=== PATIENT | male | born 1960 | race African-American/Black ===

== ENCOUNTER 2018-08-01 14:31 | Inpatient (IN) | payer OTHER ==
[~2018-08-01 14:31] MED LIST: Heparin 10,000 UNITS/ 10 ML VIAL ONE
[2018-08-01 15:10] LABS: Hemoglobin 12.4 g/dL (14.0-18.0); Mean Corpuscular HGB CONC 31.3 g/dL (32.0-36.0); Mean Corpuscular Hemoglobin 30.3 pg (27.0-31.0); Mean Corpuscular Volume 96.9 fL (78.0-98.0); Mean Platelet Volume 8.8 fL (7.4-10.4); Platelet Count 121 thou/uL (130-400); RBC Distribution Width 19.3 % (11.5-14.5); Red Blood Cell (RBC) Count 4.09 mill/uL (4.70-6.10); White Blood Cell (WBC) Count 4.5 thou/uL (4.8-10.8)
[2018-08-01] MEDS ORDERED: Dexamethasone 4 mg/ml Vial ONE (15:15)
[2018-08-01] MEDS ORDERED: Ondansetron PF 4 MG/2 ML Vial ONE (15:15)
--- NOTE | 2018-08-01 15:22 | CT ---
CT Brain WO Con: 08/01/2018 2:59 PM CLINICAL HISTORY: Emergency exam, vomiting, edema, history of recent fall. COMPARISON: None. FINDINGS: Significant patient motion degrades image quality. Hemorrhage: None. Ventricular system: Normal in size and morphology for the patient's age. Cerebral parenchyma: Microvascular ischemic disease. There are bilateral age-indeterminate cerebellar hemispheric, and thalamic lacunar infarctions Midline shift: None. Mass: No mass effect. Calvarium: Normal. Visualized Paranasal sinuses: Clear. IMPRESSION: Multifocal lacunar infarctions and microvascular ischemic disease, age indeterminate. Consider follow -up brain MRI, noncontrast, in order to exclude evidence of acute ischemia.
[2018-08-01 15:28] LABS: INR-International Normal Ratio 1.9; PTT 39.3 SEC (22.9-36.1); Prothrombin Time 21.5 SEC (12.0-14.7)
[2018-08-01 15:31] LABS: ALT (SGPT) 54 U/L (8-55); AST (SGOT) 96 U/L (5-34); Albumin 3.2 g/dL (3.5-5.0); Alkaline Phosphatase 272 U/L (40-150); Anion Gap 18 mmol/L (10-20); BUN (Urea Nitrogen) 71 mg/dL (8.4-25.7); Bilirubin, Total 12.7 mg/dL (0.2-1.2); CK (CPK) 170 U/L (30-200); Calc. Creatinine Clearance 0 mL/min (70-130); Calcium 9.4 mg/dL (7.8-10.44); Carbon Dioxide 21 mmol/L (22-29); Chloride 96 mmol/L (98-107); Estimated GFR-MDRD 18; Globulin 4.8 g/dL (2.4-3.5); Glucose 136 mg/dL (70-105); Potassium 5.3 mmol/L (3.5-5.1); Sodium 130 mmol/L (136-145)
[2018-08-01 15:34] LABS: Anisocytosis SLIGHT = 6-15 cells (100X) (0-5/hpf); Band 3 % (5-11); Lymphocytes 16 % (21-51); MDiff Complete? YES; Monocytes 8 % (0-10); Neutrophil 70 % (42-75); Nucleated RBC 1 % (0); Platelet Morphology Comment Appears Decreased; Polychromasia SLIGHT = 2-3 cells (100X) (0-2/hpf); Target Cells SLIGHT = 2-5 cells (100X) (0-1/hpf)
[2018-08-01] MEDS ORDERED: Metoclopramide HCl 10 MG/2 ML VIAL ONE (15:40)
--- NOTE | 2018-08-01 15:41 | RAD ---
PORTABLE CHEST 1 VIEW: Date: 08/01/18 Time: 1526 hours HISTORY: Vomiting. Leg swelling. FINDINGS/IMPRESSION: Comparison made with exam of 11/22/11. Cardiomegaly and left-sided AICD device are again seen. The lungs are expanded with mid prominence of pulmonary vascularity without lobar consolidation, pneumothoraces, quang pulmonary edema, or large e ffusions. POS: TPC
[2018-08-01 15:51] LABS: CKMB 5.2 ng/mL (0-6.6)
[2018-08-01] MEDS ORDERED: Senokot S 8.6-50 MG TAB PO PRN (20:50)
[2018-08-01] MEDS ORDERED: Bisacodyl 10 MG SUPP PR PRN (20:50)
[2018-08-01] MEDS ORDERED: Dextrose 5% in Water 1,000 ML IV PRN (20:50)
[2018-08-01] MEDS ORDERED: HumaLOG 300 UNITS/3 ML VIAL SC PRN (20:50)
[2018-08-01] MEDS ORDERED: Guaifenesin DM 100-10/5 ML UDCUP PO PRN (20:50)
[2018-08-01] MEDS ORDERED: Dextrose 50% Abboject 50 ML SYRINGE SLOW IVP PRN (20:50)
--- NOTE | 2018-08-01 22:01 | HP ---
REASON FOR ADMISSION: Right hemiparesis, acute kidney injury, possible CKD, metabolic acidosis, mild hyperkalemia, COPD exacerbation, and CHF exacerbation. HISTORY OF PRESENTING ILLNESS: Please note, the patient is a very poor historian and is lethargic as well. Have to repeatedly question him to get responses before he falls asleep. He states he has been feeling worn out and feeling bad from the last week or so. He says he developed right-sided weakness for last one week. He thought he if he sits in the sun, he might feel better. He has been doing that from yesterday. None of this really helped his weakness on the right side. The patient finally made it to the emergency room here. Has shortness of breath and is currently wheezing. He says his heart is weak, and it is likely 10%, and this was checked last month at [facility], which again he is not very sure. He has no complaints of fever. His swelling in the lower extremity has been slowly building up. No complaints of chest pain or palpitation. He says he has usual expectoration of sputum. He quit smoking a month back prior to which was smoking 2 packs a day. PAST MEDICAL AND SURGICAL HISTORY: History of DVT ?, likely atrial fibrillation ; history of CHF with systolic dysfunction and likely EF of around 10%; history of IA 5 years back, the patient is unclear if he had any stents or angioplasty done for the same; dyslipidemia; hypertension; obesity; pacemaker; cholecystectomy; history of nonischemic cardiomyopathy with EF of 15% with AICD placed here; diabetes mellitus type 2; and prior history of SVT. CURRENT MEDICATIONS: The patient knows he takes Lasix, but he does not recall any other medications. Despite giving multiple cues, the patient is unable to answer or recognize any other medications. He goes to [facility] in [place] and we will obtain a complete med list there. I have just received a fax from the pharmacy. The patient is on: 1. Amiodarone 200 mg daily. 2. Atorvastatin 20 mg at bedtime. 3. Coreg 6.25 mg twice daily. 4. Lasix 40 mg at bedtime. 5. Metolazone 2.5 mg daily. 6. K-Dur 10 mEq p.o. daily. 7. Coumadin 2 mg daily. ALLERGIES: NO KNOWN DRUG ALLERGIES. PERSONAL HISTORY: Quit smoking 1 month back prior to which has smoked 2 packs a day. He has done cocaine in the past, last used was more than 10 years ago. Does not abuse alcohol or drugs. He lives alone. Has a girlfriend, who comes and visits him. Has a daughter. FAMILY HISTORY: Father has had history of heart disease, coronary artery disease runs in multiple family members. CODE STATUS: Full. POWER OF JAWBONE PULLER: Daughter, Ms. Margo Khanna. PHYSICAL EXAMINATION: GENERAL: The patient is a 57-year-old male, who is currently very lethargic. VITAL SIGNS: Blood pressure 116/80, pulse 86 per minute, respiratory rate 20 per minute, temperature 97.7 degrees Fahrenheit, and saturating 98% on room air. NECK: There is elevated JVD. HEENT: Eyes; extraocular muscles intact. Pupils reacting to light. Oral cavity, mucous membranes are dry. No exudates or congestion. CARDIOVASCULAR: S1 and S2 heard. Regular rhythm. RESPIRATORY: Air entry 1+ bilateral. Scattered rales plus bilateral wheezes plus bilateral. ABDOMEN: Soft. Bowel sounds heard. No tenderness, rigidity, or guarding. EXTREMITIES: There is 2+ peripheral edema. No calf tenderness. VASCULAR: Peripheral pulses 1+ bilateral. No ischemic ulcerations or gangrene. CENTRAL NERVOUS SYSTEM: Cranial nerves are grossly intact. Please note, the patient is very lethargic and somnolent at present. Strength is 3/5 in right upper and right lower extremities. Has normal strength in left upper and lower extremities. He is a right-handed person. Babinski is equivocal. The patient has severe edema in both lower extremities. Reflexes to the extent possible are normal. Gait and cerebellar signs cannot be tested due to the patient's somnolence and lethargic at present. PSYCHIATRIC: Cannot be obtained as the patient is very somnolent at present. No obvious hallucinations or delusions at present. CLINICAL IMPRESSION AND PLAN: The patient will be admitted to stroke unit with right hemiparesis, acute on chronic obstructive pulmonary disease exacerbation, acute on chronic congestive heart failure exacerbation with systolic dysfunction , acute kidney injury on top of likely chronic kidney disease, metabolic acidosis, hyperkalemia. It is unclear if the patient has history of deep venous thrombosis, but he is on Coumadin. We will place him on aspirin 81 mg daily in addition to Coumadin that he is on. Continue Cordarone, atorvastatin at 40 mg daily, small dose of Coreg 3.125 mg twice daily, DuoNebs, and Solu-Medrol 20 mg IV q.8 hourly for the chronic obstructive pulmonary disease exacerbation. He will be on Humalog moderate dose scale for diabetes. I have consulted Dr. Parker for acute kidney injury on top of chronic kidney disease with massive edema in the lower extremities. We will consult Dr. Spring for Cardiology, Dr. Williamson for Neurology, and Dr. Villanueva for Pulmonology. An echo with 2D Doppler for LV function and to rule out thrombus will be obtained. The lipid profile in the morning, TSH in the morning. We will also obtain a urine drug screen and urinalysis with microscopy in view of acute kidney injury. The patient's overall prognosis is guarded with multiple organ disease. We will obtain ultrasound venous Doppler of lower extremities and also obtain Palliative Care consultation. I have asked him about code status and he wants to be a full code. He is clearly aware of multiple medical issues that he is having at present and still wants to be full code. His daughter, Ms. Margo Khanna, is the power of civil rights attorney for him. Job ID: [id number] MTDD
[2018-08-01] MEDS: Atorvastatin Calcium 40 MG TAB PO SCH (22:19)
[2018-08-01] MEDS: methylPREDNISolone Sod Succ 40 MG VIAL IVP SCH (22:19)
[2018-08-01] MEDS: Carvedilol 3.125 MG TAB PO SCH (22:19)
[2018-08-02 03:42] LABS: Bilirubin Moderate (Negative); Blood, Urine Negative (Negative); Clarity CLOUDY (Clear); Glucose, Urine (Dipstick) Negative (Negative); Leukocyte Trace (Negative); Nitrite Negative (Negative); Protein, Urine (Dipstick) Negative (Neg-Trace); Specific Gravity, Urine 1.012 (1.002-1.036)
[2018-08-02 03:45] LABS: Bacteria/HPF None Seen HPF (None Seen); Squamous Epithelial 0-3 HPF (0-3)
[2018-08-02 04:05] LABS: Amphetamine Not Detected (NotDetected); Barbiturates Screen Not Detected (NotDetected); Benzodiazepine Screen Not Detected (NotDetected); Cocaine Metabolite Screen Not Detected (NotDetected); Medtox Control Line Valid? VALID (VALID); Medtox Reader # READER 4; Methadone Not Detected (NotDetected); Methamphetamine Not Detected (NotDetected); Opiate Screen Not Detected (NotDetected); Oxycodone Screen Not Detected (NotDetected); Phencyclidine (PCP) Not Detected (NotDetected); THC/Cannabinoid Screen Not Detected (NotDetected); Tricyclic Screen Not Detected (NotDetected)
[2018-08-02 04:19] LABS: Creatinine, Urine 115.07 mg/dL (63-166); Protein, Urine Random Quant Less than 10 mg/dL (1-14)
[2018-08-02 04:56] LABS: INR-International Normal Ratio 1.9; Prothrombin Time 21.8 SEC (12.0-14.7)
[2018-08-02] MEDS: methylPREDNISolone Sod Succ 40 MG VIAL IVP SCH ×3 (05:00→21:38)
[2018-08-02 05:06] LABS: Pathc Cast-AUWi Flag 2.72 (0-2.49); Renal Epithelial None Seen HPF (0-3); Transitional Epithelial NONE SEEN HPF (0-3)
[2018-08-02 05:13] LABS: Anion Gap 17 mmol/L (10-20); BUN (Urea Nitrogen) 70 mg/dL (8.4-25.7); Calc. Creatinine Clearance 35 mL/min (70-130); Calcium 9.4 mg/dL (7.8-10.44); Carbon Dioxide 20 mmol/L (22-29); Cardiac Risk 8.3 (Less than 4.5); Chloride 97 mmol/L (98-107); Cholesterol 124 mg/dl (< 200 Desired); Estimated GFR-MDRD 19; Glucose 113 mg/dL (70-105); HDL Cholesterol 15 mg/dL (>60 Neg Risk); LDL Cholesterol, Calculated 94 mg/dL; Magnesium 1.9 mg/dL (1.6-2.6); Potassium 5.2 mmol/L (3.5-5.1); Sodium 129 mmol/L (136-145); Triglycerides 77 mg/dL (Less than 150)
[2018-08-02 06:01] LABS: Anisocytosis SLIGHT = 6-15 cells (100X) (0-5/hpf); Band 2 % (5-11); Hemoglobin 12.2 g/dL (14.0-18.0); Lymphocytes 11 % (21-51); MDiff Complete? YES; Mean Corpuscular HGB CONC 30.4 g/dL (32.0-36.0); Mean Corpuscular Hemoglobin 29.3 pg (27.0-31.0); Mean Corpuscular Volume 96.4 fL (78.0-98.0); Neutrophil 87 % (42-75); Nucleated RBC 2 % (0); Platelet Count 117 thou/uL (130-400); Platelet Morphology Comment Appears Decreased; RBC Distribution Width 19.6 % (11.5-14.5); Red Blood Cell (RBC) Count 4.17 mill/uL (4.70-6.10); White Blood Cell (WBC) Count 3.2 thou/uL (4.8-10.8)
[2018-08-02] MEDS: HumaLOG 300 UNITS/3 ML VIAL SC PRN (06:10)
[2018-08-02] MEDS: Aspirin Chewable 81 MG TAB PO SCH (09:12)
[2018-08-02] MEDS: Carvedilol 3.125 MG TAB PO SCH ×2 (09:12→21:38)
[2018-08-02] MEDS: Amiodarone 200 MG TAB PO SCH (09:12)
--- NOTE | 2018-08-02 10:58 | ULT ---
EXAM: Bilateral lower extremity venous duplex: Deep veins evaluated with color Doppler, spectral analysis, and compression. INDICATIONS: Bilateral lower extremity edema. FINDINGS: Deep veins interrogated include common femoral vein, femoral vein, popliteal vein, and post erior tibial vein. These veins show normal compression and blood flow. No evidence of DVT. IMPRESSION: Negative Bilateral venous duplex exam. Soft tissue edema.
--- NOTE | 2018-08-02 11:22 | PDOC.PN ---
- Subjective Encounter Start Date: 08/02/18 Encounter Start Time: 11:20 Subjective: Admitted due to decreased responsiveness associated with right leg weakness -: Also reported worsening bilateral leg swelling and N/V -: Feeling better. - Objective Resuscitation Status - Order Detail: 08/01/18 20:34 Resuscitation Status Routine Resuscitation Status: FULL: Full Resuscitation Discussed with: POA: daughter Ms.Rachel Leal Vital Signs & Weight: Vital Signs (12 hours) Temp Pulse Pulse Resp BP BP Pulse Ox 08/02/18 10:49 60 16 08/02/18 08:41 60 109/75 08/02/18 07:30 97.8 F 60 20 101/73 100 08/02/18 04:00 97.4 F L 71 16 97/69 91 L 08/02/18 00:50 96 08/02/18 00:46 64 12 96 08/02/18 00:00 97.5 F L 66 16 101/71 95 Weight Weight 260 lb 11.2 oz I&O: 08/01/18 08/02/18 08/03/18 06:59 06:59 06:59 Intake Total 300 Balance 300 Result Diagrams: 08/02/18 04:38 08/02/18 04:37 Additional Labs: Accuchecks 08/02/18 08/02/18 08/01/18 11:00 04:06 21:02 POC Glucose 146 H 169 H 114 H 08/01/18 14:42 POC Glucose 133 H Phys Exam - Physical Examination Chronically ill looking. afebrile HEENT: moist MMs JVD noted Respiratory: no rhonchi Fair air entry with transmitted sound. Cardiovascular: RRR Gastrointestinal: soft, non-tender, no distention, positive bowel sounds Musculoskeletal: pulses present Marked bilateral lower extremity edema Awake and conversational, Power 5/5 upper limbs with no drift. moving lower limbs with decreased power relative to upper limbs. Psychiatric: A&O x 3 Deviation from normal: Hyperpigmentation of bothe distal legs noted. anterior leg dressing noted Dx/Plan (1) Acute on chronic combined systolic and diastolic congestive heart failure Code(s): I50.43 - ACUTE ON CHRONIC COMBINED SYSTOLIC AND DIASTOLIC HRT FAIL Status: Acute (2) Cardiomyopathy Code(s): I42.9 - CARDIOMYOPATHY, UNSPECIFIED Status: Acute Qualifiers: Cardiomyopathy type: unspecified Qualified Code(s): I42.9 - Cardiomyopathy , unspecified (3) CKD (chronic kidney disease) Code(s): N18.9 - CHRONIC KIDNEY DISEASE, UNSPECIFIED Status: Acute Comment: SRAVAN componenet cannot be ruled out. (4) Hyperkalemia Code(s): E87.5 - HYPERKALEMIA Status: Acute Comment: Mild. (5) Metabolic acidosis Code(s): E87.2 - ACIDOSIS Status: Acute (6) Acute metabolic encephalopathy Code(s): G93.41 - METABOLIC ENCEPHALOPATHY Status: Acute Comment: Most likely due to CKD +/- SRAVAN (7) Cerebellar infarction Code(s): I63.9 - CEREBRAL INFARCTION, UNSPECIFIED Status: Acute (8) COPD exacerbation Code(s): J44.1 - CHRONIC OBSTRUCTIVE PULMONARY DISEASE W (ACUTE) EXACERBATION Status: Acute (9) Bilateral leg edema Code(s): R60.0 - LOCALIZED EDEMA Status: Acute (10) Physical deconditioning Code(s): R53.81 - OTHER MALAISE Status: Acute (11) Diabetes mellitus Code(s): E11.9 - TYPE 2 DIABETES MELLITUS WITHOUT COMPLICATIONS Status: Acute (12) Chronic anticoagulation Code(s): Z79.01 - CARE HOME (CURRENT) USE OF ANTICOAGULANTS Status: Acute (13) History of DVT of lower extremity Code(s): Z86.718 - PERSONAL HISTORY OF OTHER VENOUS THROMBOSIS AND EMBOLISM Status: Acute - Plan Start low dose IV lasix. Will increase as BP permits. -: Awaiting Neurology and Nephrology input. -: Awaiting MRI and Echo -: Continue Bronchodilators and steroid. -: Continue insulin therapy, PT/OT eval and treat * .
[2018-08-02] MEDS ORDERED: Furosemide 20 MG/2 ML VIAL SLOW IVP SCH (11:45)
--- NOTE | 2018-08-02 13:28 | PRG ---
DATE OF SERVICE: 08/02/2018 SUBJECTIVE: Patient was seen and examined at bedside and overnight events noted. Patient denies any shortness of breath or chest pain or palpitation. No history of nausea or vomiting or diarrhea or fever or chills or cramps. OBJECTIVE: GENERAL: This is an ill looking male, in no apparent distress. VITAL SIGNS: Temperature 97.5, heart rate 67, respiratory rate 16, and blood pressure 111/71. HEENT: Atraumatic, normocephalic. Oral mucosa is moist. NECK: Supple. CARDIOVASCULAR: S1, S2 heard. Rate and rhythm regular. RESPIRATORY: Clear to auscultation. GASTROINTESTINAL: Abdomen is soft. MUSCULOSKELETAL: No tenderness. No edema. DERMATOLOGIC: No skin rash. NEUROLOGIC: Alert and awake and oriented X3. No focal neurologic deficits. Moving all the extremities. PSYCHIATRIC: Mood and affect normal. LABORATORY DATA: Hemoglobin is 12.2, potassium is 5.2, BUN is 70, and creatinine is 4.7. ASSESSMENT AND PLAN: 1. Acute kidney injury on chronic kidney disease, stage 4. Agree with low dose of Lasix. 2. Hyperkalemia. 3. Hyponatremia, limit fluid intake. 4. Metabolic acidosis. 5. Cardiorenal syndrome. 6. Anemia. 7. Hypertension, stable. 8. Agree with low-dose Lasix and monitor blood pressure closely. Avoid nephrotoxins and long-term prognosis guarded. We will review records from [facility]. Job ID: [id number]
--- NOTE | 2018-08-02 14:28 | CON ---
DATE OF CONSULTATION: HISTORY OF PRESENT ILLNESS: Guilherme Hernadez is a 57-year-old gentleman from [place], who was admitted to the hospital yesterday with multiple problems, vomiting, lower extremity swelling, confusion, falling down, and weakness. He has no history of cardiomyopathy. In fact, he had an ICD placed in 7-8 years ago and tells me he was seeing a convention planner at [place]. Apparently, he has no primary care physician, though this morning, he is clearly lethargic and sleepy. He said he has not slept. He denies any coughing or wheezing. He is smoking a pack a day for most of his life. He denies any previous history of TB or asthma. PAST MEDICAL HISTORY: 1. Congestive heart failure. 2. Myocardial infarction. 3. Diabetes. 4. High cholesterol. 5. Cardiomyopathy. 6. COPD. 7. Asthma. PAST SURGERIES: 1. Pacemaker. 2. Cholecystectomy. HOME MEDICATIONS: Includes; 1. Coumadin 2. 2. Potassium. 3. Zaroxolyn 2.5. 4. Lasix 40. 5. Coreg 6.25 twice a day. 6. Lipitor 20. 7. Amiodarone 200 a day. He is now started on steroids and neb treatment. ALLERGIES: NONE. SOCIAL HISTORY: As noted, no alcohol abuse. Presently disabled. REVIEW OF SYSTEMS: Ten point negative. PHYSICAL EXAMINATION: VITAL SIGNS: Saturations are 94% on room air, pulse 60, temperature 97, respiratory rate 16, blood pressure 110/71. CHEST: Diffuse wheezing. CARDIAC: Normal S1 and S2. No gallops. ABDOMEN: Soft. LABORATORY DATA: Creatinine is 4, BUN is 70, and glucose 145. Drug screen was negative. White count 3000, hemoglobin and hematocrit 12 and 40, platelet count 117. Chest x-ray shows a cardiomegaly and AICD in place. IMPRESSION: 1. Ischemic cardiomyopathy status post automatic implantable cardioverter-defibrillator. 2. Diabetes. 3. Renal failure. 4. Hypertension. 5. Tobacco abuse. 6. Chronic obstructive pulmonary disease. 7. Asthma. PLAN: Pulmonary conklin, he is on adequate medication, obviously to refrain from smoking. Await input from Cardiology and appropriate physicians. We will follow. TIME SPENT: Consultation note, 70 minutes, 50% in direct patient care. Job ID: [id number]
--- NOTE | 2018-08-02 15:14 | CON ---
DATE OF CONSULTATION: 08/02/2018 CONSULTING PHYSICIAN: Hospitalist Service. IMPRESSION: 1. Probable lacunar stroke, resulting in some improving right-sided weakness, nausea, and dizziness, consistent with the small left thalamic infarct, present on CT. 2. Subtherapeutic Coumadin. 3. Congestive heart failure. PLAN: 1. Adjust Coumadin to an INR between 2-3. 2. Echocardiogram. 3. Carotid ultrasound. HISTORY OF PRESENT ILLNESS: Mr. Hernadez is a 57-year-old man, who lives in [place]. He has a history of coronary artery disease with secondary congestive heart failure. He reportedly is followed at [facility] to monitor his Coumadin level. He had not been feeling well for the last several days. He had some nausea and dizziness as well as a headache. He also noted some right-sided weakness. Beside it, if he laid in the sun, he would feel better. It became progressively worsen, more obtunded. He was brought into the hospital for evaluation. He was found to be in renal failure. His CAT scan showed a subacute appearing area of infarct in the left thalamus. Otherwise, he has improved overnight and has become much more lucid. He reports that the right-sided weakness has improved significantly. PAST HISTORY: As listed above. ALLERGIES: NONE. SOCIAL HISTORY: Unremarkable. FAMILY HISTORY: Noncontributory. MEDICATIONS: Medication list was reviewed. REVIEW OF SYSTEMS: Ten-system review of systems is otherwise negative. PHYSICAL EXAMINATION: VITAL SIGNS: Blood pressure 109/75, pulse 60, respirations 20, temperature 97.8. HEENT: Pupils equal and reactive. Conjunctivae clear. Oropharynx clear. NECK: Supple. EXTREMITIES: Severe edema in both lower extremities. NEUROLOGIC: He is alert and appropriate. His speech is fluent and clear. Cranial nerve exam shows a subtle right facial droop. Motor exam showed good strength bilaterally. There was very mild dysmetria on the right side. Sensation was intact. Gait was not tested. No abnormal movements were seen. LABORATORY STUDIES: White blood cell count 4.5 and hemoglobin 12.4. INR of 1.9. BUN of 70 and creatinine of 4. Cholesterol ratio of 8.3. Toxicology screen was negative. SUMMARY: A middle-aged man with mild weakness and dysmetria on the right, consistent with a small infarct in the left thalamus. He is subtherapeutic on his Coumadin level. Reportedly, his ejection fraction is around 10%. Therefore, anticoagulation would appear to be appropriate. His level of consciousness has improved significantly since admission. His lipid panel shows a very poor ratio, will need to be addressed with a statin. We will review his vascular studies when they are available. Job ID: [id number]
[2018-08-02] MEDS: Warfarin Sodium 2 MG TAB PO SCH (16:58)
[2018-08-02] MEDS: Mometasone/Formoterol 120 PUFF INHALER INH SCH (19:25)
[2018-08-02] MEDS ORDERED: Ondansetron ODT 4 MG TAB PO PRN (19:28)
[2018-08-02] MEDS: Ondansetron PF 4 MG/2 ML Vial SLOW IVP PRN (19:42)
[2018-08-02] MEDS: Atorvastatin Calcium 40 MG TAB PO SCH (21:38)
[2018-08-02] MEDS: Melatonin 3 MG TAB PO PRN (23:58)
[2018-08-03] MEDS: Acetaminophen 325 MG TAB PO PRN ×2 (00:01→12:54)
[2018-08-03] MEDS: methylPREDNISolone Sod Succ 40 MG VIAL IVP SCH (05:20)
[2018-08-03] MEDS: Mometasone/Formoterol 120 PUFF INHALER INH SCH ×2 (07:10→19:15)
[2018-08-03] MEDS: Aspirin Chewable 81 MG TAB PO SCH (08:32)
[2018-08-03] MEDS: Carvedilol 3.125 MG TAB PO SCH ×2 (08:32→21:39)
[2018-08-03] MEDS: Amiodarone 200 MG TAB PO SCH (08:32)
[2018-08-03 08:39] LABS: INR-International Normal Ratio 2.1; Prothrombin Time 23.6 SEC (12.0-14.7)
[2018-08-03 08:42] LABS: Albumin 3.3 g/dL (3.5-5.0); Anion Gap 16 mmol/L (10-20); BUN (Urea Nitrogen) 74 mg/dL (8.4-25.7); BUN/Creatinine Ratio 18.78; Calc. Creatinine Clearance 36 mL/min (70-130); Calcium 9.8 mg/dL (7.8-10.44); Carbon Dioxide 24 mmol/L (22-29); Chloride 95 mmol/L (98-107); Estimated GFR-MDRD 19; Glucose 118 mg/dL (70-105); Phosphorus 3.9 mg/dL (2.3-4.7); Potassium 5.2 mmol/L (3.5-5.1); Sodium 130 mmol/L (136-145)
[2018-08-03] MEDS ORDERED: Furosemide 40 MG/4 ML VIAL SLOW IVP SCH (08:45)
--- NOTE | 2018-08-03 10:46 | PDOC.PN ---
- Subjective Encounter Start Date: 08/03/18 Encounter Start Time: 10:44 Subjective: Feeling better. No new problwm -: Still with marked bilateral leg edema - Objective Resuscitation Status - Order Detail: 08/01/18 20:34 Resuscitation Status Routine Resuscitation Status: FULL: Full Resuscitation Discussed with: POA: daughter Ms.Rachel Leal Vital Signs & Weight: Vital Signs (12 hours) Temp Pulse Resp BP BP Pulse Ox 08/03/18 07:11 97.4 F L 60 20 109/79 100 08/03/18 07:10 61 16 08/03/18 07:02 61 16 08/03/18 03:20 97.5 F L 60 16 95/61 100 08/03/18 01:15 64 12 08/02/18 23:22 97.3 F L 84 16 118/78 96 Weight Admit Weight 260 lb 11.2 oz Weight 264 lb 14.4 oz I&O: 08/02/18 08/03/18 08/04/18 06:59 06:59 06:59 Intake Total 1100 300 Output Total 800 250 Balance 300 50 Result Diagrams: 08/02/18 04:38 08/03/18 08:06 Additional Labs: Accuchecks 08/02/18 08/02/18 08/02/18 20:49 16:36 11:00 POC Glucose 255 H 149 H 146 H Phys Exam - Physical Examination chronically ill looking. HEENT: moist MMs JVD noted fair air entry bilaterally with no obvious crackles or rhonchi Cardiovascular: RRR systolic murmur noted Gastrointestinal: soft, non-tender, no distention, positive bowel sounds Marked edema of both legs. awake and conversational. moving all limbs. Psychiatric: A&O x 3 Dx/Plan (1) Acute on chronic combined systolic and diastolic congestive heart failure Code(s): I50.43 - ACUTE ON CHRONIC COMBINED SYSTOLIC AND DIASTOLIC HRT FAIL Status: Acute (2) Cardiomyopathy Code(s): I42.9 - CARDIOMYOPATHY, UNSPECIFIED Status: Acute Qualifiers: Cardiomyopathy type: unspecified Qualified Code(s): I42.9 - Cardiomyopathy , unspecified (3) CKD (chronic kidney disease) Code(s): N18.9 - CHRONIC KIDNEY DISEASE, UNSPECIFIED Status: Acute Comment: SRAVAN componenet cannot be ruled out. (4) Hyperkalemia Code(s): E87.5 - HYPERKALEMIA Status: Acute Comment: Mild. (5) Metabolic acidosis Code(s): E87.2 - ACIDOSIS Status: Acute (6) Acute metabolic encephalopathy Code(s): G93.41 - METABOLIC ENCEPHALOPATHY Status: Acute Comment: Most likely due to CKD +/- SRAVAN (7) Cerebellar infarction Code(s): I63.9 - CEREBRAL INFARCTION, UNSPECIFIED Status: Acute (8) COPD exacerbation Code(s): J44.1 - CHRONIC OBSTRUCTIVE PULMONARY DISEASE W (ACUTE) EXACERBATION Status: Acute (9) Bilateral leg edema Code(s): R60.0 - LOCALIZED EDEMA Status: Acute (10) Physical deconditioning Code(s): R53.81 - OTHER MALAISE Status: Acute (11) Diabetes mellitus Code(s): E11.9 - TYPE 2 DIABETES MELLITUS WITHOUT COMPLICATIONS Status: Acute (12) Chronic anticoagulation Code(s): Z79.01 - [facility] (CURRENT) USE OF ANTICOAGULANTS Status: Acute (13) History of DVT of lower extremity Code(s): Z86.718 - PERSONAL HISTORY OF OTHER VENOUS THROMBOSIS AND EMBOLISM Status: Acute (14) Severe mitral regurgitation Code(s): I34.0 - NONRHEUMATIC MITRAL (VALVE) INSUFFICIENCY Status: Acute (15) Severe tricuspid regurgitation Code(s): I07.1 - RHEUMATIC TRICUSPID INSUFFICIENCY Status: Acute (16) Moderate aortic regurgitation Code(s): I35.1 - NONRHEUMATIC AORTIC (VALVE) INSUFFICIENCY Status: Acute - Plan Continue low dose diuresis as BP permits. -: Elevate lower extremities. -: Appreciate Nephrology input. -: Awaiting MRI brain. -: Continue PT/OT * .
--- NOTE | 2018-08-03 11:46 | PRG ---
DATE OF SERVICE: 08/03/2018 SUBJECTIVE: Guilherme Hernadez is doing well this morning. OBJECTIVE: VITAL SIGNS: Temperature 97, pulse 60, respiratory rate 20, saturations 100% on 2 L, and blood pressure 109/79. GENERAL: Denies any pain or discomfort. CHEST: No wheezing or crackles. CARDIAC: Normal S1 and S2. No gallops. ABDOMEN: No masses. LABORATORY DATA: Creatinine is 3.9. INR is 2.1. IMPRESSION: Chronic obstructive pulmonary disease, cardiomyopathy, diabetes, hypertension, tobacco abuse, weakness suggestive of thalamic infarct. PLAN: Continue PT, supportive care. Switch over to oral prednisone. Job ID: [id number]
--- NOTE | 2018-08-03 12:47 | PRG ---
DATE OF SERVICE: 08/03/2018 SUBJECTIVE: Patient was seen and examined at bedside and overnight events noted. Patient denies any shortness of breath or chest pain or palpitation. No history of nausea or vomiting or diarrhea or fever or chills or cramps. OBJECTIVE: GENERAL: This is a well-built male, in no apparent distress. VITAL SIGNS: Temperature 97.5. Heart rate 60. Respiratory rate 16. Blood pressure 103/77. HEENT: Atraumatic, normocephalic. Oral mucosa is moist. NECK: Supple. CARDIOVASCULAR: S1, S2 heard. Rate and rhythm regular. RESPIRATORY: Clear to auscultation. GASTROINTESTINAL: Abdomen is soft. MUSCULOSKELETAL: No tenderness. No edema. DERMATOLOGIC: No skin rash. NEUROLOGIC: Alert and awake and oriented x3. No focal neurologic deficits. Moving all the extremities. PSYCHIATRIC: Mood and affect normal. LABORATORY DATA: Potassium is 5.2, BUN is 74, creatinine is 3.9 from 4.1 on admission. IMAGING DATA: Echocardiogram done yesterday on 08/02/2018 showed EF of 10% to 15% with severely dilated left atrium and markedly enlarged right atrium with severe tricuspid regurgitation and severe mitral valve regurgitation. ASSESSMENT AND PLAN: 1. Acute kidney injury on chronic kidney, stage 4 with stable labs, on low dose of Lasix. 2. Cardiorenal syndrome. 3. Severe cardiomyopathy with multiple valvular problem secondary to severe mitral regurgitation and severe tricuspid regurgitation. Follow with Cardiology. 4. Hyponatremia. 5. Metabolic acidosis, most likely from cardiac cause. 6. Anemia. We will monitor. 7. Hypertension, stable. 8. Hyperkalemia. Limit potassium intake and continue Lasix. We will follow. Continue Lasix as tolerated. We will closely monitor renal function. Job ID: [id number]
[2018-08-03] MEDS ORDERED: Furosemide 20 MG/2 ML VIAL SLOW IVP SCH (14:00)
[2018-08-03] MEDS ORDERED: DOBUTamine 500 mg/250 ml 250 ML IVPB SCH (15:00)
[2018-08-03] MEDS: Ondansetron PF 4 MG/2 ML Vial SLOW IVP PRN (15:01)
--- NOTE | 2018-08-03 16:54 | CON ---
DATE OF CONSULTATION: HISTORY OF PRESENT ILLNESS: The patient is an unfortunate 57-year-old gentleman with severe cardiomyopathy, who presented with right-sided weakness. The patient has a long history of an apparent nonischemic cardiomyopathy. 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 The patient has been admitted recently to [facility] with congestive heart failure. He was in usual state of health and presented with right-sided weakness. The patient denies having any chest discomfort. PAST MEDICAL HISTORY: Significant for: 1. Cardiomyopathy. 2. Hypertension. 3. Chronic renal failure. 4. Dyslipidemia. 5. History of AICD placement. 6. Diabetes. PAST SURGICAL HISTORY: He has had a cholecystectomy. MEDICATIONS: See nursing list. ALLERGIES: NONE. SOCIAL HISTORY: Former smoker. FAMILY HISTORY: Strong family history of heart disease. REVIEW OF SYSTEMS: Ten-point systems; noticeable for headaches, increasing weakness, and lower extremity swelling. PHYSICAL EXAMINATION: GENERAL: This is an edematous gentleman, who is in mild distress. VITAL SIGNS: Blood pressure 103/77. NECK: Full with jugular venous distention to the jaw. LUNGS: Have crackles in both lung bases. HEART: Regular rate and rhythm. Normal S1 and S2 with a 2/6 holosystolic murmur. ABDOMEN: Distended. EXTREMITIES: Showed severe edema. VASCULAR: Radial pulses are 2+. LABORATORY RESULTS: His sodium is 130, potassium 5.2, chloride 95, bicarb 24, BUN 74, creatinine 3.94. His white blood cell count is 3.2, hemoglobin 12.2, hematocrit 40.2, platelets 117. INR is 2.1. His EKG revealed sinus rhythm with first-degree AV block. IMPRESSION: 1. Cerebrovascular accident. 2. Cardiomyopathy. 3. History of automatic implantable cardioverter-defibrillator placement. 4. Renal failure. 5. Severe mitral regurgitation. 6. Dyslipidemia. 7. Diabetes mellitus. This is an unfortunate gentleman with a nonischemic cardiomyopathy, presents with a cerebrovascular accident. His Coumadin level was slightly subtherapeutic. Neurology recommended continuing on aspirin and Coumadin. The patient will be diuresed with IV Lasix. We will follow this patient with you through his hospitalization. His prognosis is extremely poor. Please call my office. Job ID: [id number]
[2018-08-03] MEDS: Warfarin Sodium 2 MG TAB PO SCH (17:36)
[2018-08-03] MEDS: Melatonin 3 MG TAB PO PRN (21:39)
[2018-08-04] MEDS ORDERED: Furosemide 40 MG/4 ML VIAL SLOW IVP SCH ×2 (06:00→14:00)
[2018-08-04] MEDS: HumaLOG 300 UNITS/3 ML VIAL SC PRN (06:27)
[2018-08-04 06:30] LABS: INR-International Normal Ratio 2.6; Prothrombin Time 27.6 SEC (12.0-14.7)
[2018-08-04 06:41] LABS: Albumin 2.8 g/dL (3.5-5.0); Anion Gap 17 mmol/L (10-20); BUN (Urea Nitrogen) 79 mg/dL (8.4-25.7); BUN/Creatinine Ratio 20.79; Calc. Creatinine Clearance 37 mL/min (70-130); Calcium 9.5 mg/dL (7.8-10.44); Carbon Dioxide 21 mmol/L (22-29); Chloride 97 mmol/L (98-107); Estimated GFR-MDRD 20; Glucose 136 mg/dL (70-105); Potassium 5.5 mmol/L (3.5-5.1); Sodium 129 mmol/L (136-145)
[2018-08-04 06:43] LABS: ALT (SGPT) 48 U/L (8-55); AST (SGOT) 68 U/L (5-34); Albumin 2.8 g/dL (3.5-5.0); Alkaline Phosphatase 261 U/L (40-150); Anion Gap 17 mmol/L (10-20); BUN (Urea Nitrogen) 80 mg/dL (8.4-25.7); Bilirubin, Total 9.5 mg/dL (0.2-1.2); Calc. Creatinine Clearance 37 mL/min (70-130); Calcium 9.8 mg/dL (7.8-10.44); Carbon Dioxide 22 mmol/L (22-29); Chloride 98 mmol/L (98-107); Estimated GFR-MDRD 20; Glucose 138 mg/dL (70-105); Potassium 5.5 mmol/L (3.5-5.1); Protein, Total 7.4 g/dL (6.0-8.3); Sodium 131 mmol/L (136-145)
[2018-08-04] MEDS: Mometasone/Formoterol 120 PUFF INHALER INH SCH ×2 (07:36→18:19)
[2018-08-04] MEDS: Amiodarone 200 MG TAB PO SCH (08:49)
[2018-08-04] MEDS: predniSONE 20 MG TAB PO SCH (08:49)
[2018-08-04] MEDS: Aspirin Chewable 81 MG TAB PO SCH (08:50)
[2018-08-04] MEDS: Carvedilol 3.125 MG TAB PO SCH (08:51)
--- NOTE | 2018-08-04 09:23 | PRG ---
DATE OF SERVICE: 08/04/2018 SUBJECTIVE: This morning, he is weak. He was started on Dobutrex. EF is 15%. OBJECTIVE: VITAL SIGNS: Temperature 97, pulse 60, respiratory rate 14, saturations 100%, blood pressure 111/77. GENERAL: He had difficulty breathing. CHEST: No wheezing, crackles. CARDIAC: Normal S1, S2. . IMPRESSION: 1. Chronic obstructive pulmonary disease, stable. 2. Abnormal liver function. 3. Renal failure. 4. Cardiomyopathy. 5. Electrolyte imbalance. PLAN: Continue present treatment. PT, supportive care. Prognosis is guarded. Job ID: [id number]
[2018-08-04] MEDS ORDERED: Furosemide 100 MG/10 ML VIAL SLOW IVP SCH (10:30)
--- NOTE | 2018-08-04 11:16 | CON ---
DATE OF CONSULTATION: 08/01/2018 CONSULTING PHYSICIAN: Dilia Woody MD REASON FOR CONSULTATION: Acute kidney injury. REASON FOR ADMISSION: Vomiting, leg swelling. HISTORY OF PRESENT ILLNESS: This is a 57-year-old male with history of CHF, CKD, diabetes, hyperlipidemia, obesity, COPD, came to the hospital with above complaints. The patient is a poor historian, most of the history is obtained from review of records. The patient is from [place] and sees [facility] doctor. No chest pain or palpitation reported. No fever or chills. No skin rash. Complains of leg swelling, orthopnea, shortness of breath on exertion, which is chronic for him. PAST MEDICAL HISTORY: Positive for CHF, CKD, coronary artery disease, diabetes, hypertension, hyperlipidemia, obesity, COPD, asthma. PAST SURGICAL HISTORY: Pacemaker placement, cholecystectomy. HOME MEDICATIONS: Include; 1. Coumadin. 2. K-Dur. 3. Zaroxolyn. 4. Lasix. 5. Coreg. 6. Lipitor. 7. Amiodarone. ALLERGIES: NO KNOWN DRUG ALLERGIES. SOCIAL HISTORY: No smoking, alcohol, or illicit drug abuse. FAMILY HISTORY: No history of kidney disease. REVIEW OF SYSTEMS: CONSTITUTIONAL: Negative for weight loss or gain, ability to conduct usual activities. SKIN: Negative for rash, itching. EYES: Negative for double vision, pain. ENT/MOUTH: Negative for nose bleeding, neck stiffness, pain, tenderness. CARDIOVASCULAR: Negative for palpitations, dyspnea on exertion, orthopnea. RESPIRATORY: Negative for shortness of breath, wheezing, cough, hemoptysis, fever or night sweats. GASTROINTESTINAL: Negative for poor appetite, abdominal pain, heartburn, nausea, vomiting, constipation, or diarrhea. GENITOURINARY: Negative for urgency, frequency, dysuria, nocturia. MUSCULOSKELETAL: Negative for pain, swelling. NEUROLOGIC/PSYCHIATRIC: Negative for anxiety, depression. ALLERGY/IMMUNOLOGIC: Negative for skin rash, bleeding tendency. Rest are negative review of systems. PHYSICAL EXAMINATION: GENERAL: This is a well-built, in mild distress. VITAL SIGNS: Temperature 97.1, pulse 86, respiratory rate 20, blood pressure 116/79. HEENT: Atraumatic, normocephalic. Oral mucosa is moist. NECK: JVD is present. CV: S1, S2 heard. RESPIRATORY: Crackles present. GI: Abdomen is obese. MUSCULOSKELETAL: 1+ edema. DERMATOLOGIC: No skin rash. NEUROLOGIC: Awake with right-sided weakness. LABORATORY DATA: Hemoglobin is 12.4, potassium 5.3, BUN is 71, creatinine is 4.1. ASSESSMENT AND PLAN: 1. Acute kidney injury on chronic kidney disease, stage 3, most likely from cardiorenal syndrome. We will monitor. 2. Hyponatremia, limit fluid intake. 3. Hyperkalemia, limit potassium intake. 4. Metabolic acidosis. 5. Elevated liver enzymes. 6. . 7. Elevated BNP. 8. Anemia. 9. History of . 10. Prognosis guarded. We will continue close monitoring. We will review old records. Thank you for the consult. We will follow. Job ID: [id number]
--- NOTE | 2018-08-04 11:21 | PRG ---
DATE OF SERVICE: 08/04/2018 SUBJECTIVE: This is a 57-year-old gentleman being seen for acute kidney injury. The patient denies any nausea, vomiting, or chest pain. OBJECTIVE: GENERAL: The patient is awake and alert. VITAL SIGNS: Afebrile, pulse 60, breathing 16, and blood pressure 111/77. GENERAL APPEARANCE AND MENTAL STATUS: Fair. HEAD/NECK: Normocephalic. Atraumatic. EYES: EOMI. No deformity. EARS: Clear. No ulcers. NOSE: Intact. No lesions. MOUTH: Clear. No discharge. THROAT: Clear. No exudate. LUNGS: Clear. No crackles. CARDIAC: S1, S2. No rub. ABDOMEN: Benign. Bowel sounds positive. GENITALIA/RECTUM: José absent. BACK/EXTREMITIES: Lower extremities are 4+ edema. NEUROLOGICAL: Alert and motor intact. SKIN: LYMPHATICS: LABORATORY DATA: Hemoglobin 12.7. Potassium 5.5. ASSESSMENT AND PLAN: 1. Chronic kidney disease stage 4 with hyperkalemia. Advised dialysis, the patient declined. 2. Hyperkalemia. We will give Kayexalate. 3. Hypertension. Stable. 4. Congestive heart failure. Stable. Overall prognosis is poor. Risks versus benefits of dialysis were discussed, the patient declined. Prognosis is extremely poor. Discussed side effects of Kayexalate, the patient agreed. Job ID: [id number]
--- NOTE | 2018-08-04 13:33 | PDOC.PN ---
- Subjective Encounter Start Date: 08/04/18 Encounter Start Time: 13:00 Subjective: no sob, is sitting in chair -: discussed about starting HD and he agrees -: no chest pain, is able to move all extremities - Objective Resuscitation Status - Order Detail: 08/01/18 20:34 Resuscitation Status Routine Resuscitation Status: FULL: Full Resuscitation Discussed with: POA: daughter Ms.Rachel Mel GLOVER Reviewed: Yes Vital Signs & Weight: Vital Signs (12 hours) Temp Pulse Pulse Pulse Resp BP BP 08/04/18 12:00 97.5 F L 62 16 08/04/18 08:51 67 72 110/74 106/84 08/04/18 08:00 97.4 F L 60 14 08/04/18 07:50 97.4 F L 60 14 08/04/18 07:34 60 16 08/04/18 04:00 97.4 F L 61 16 BP BP Pulse Ox 08/04/18 12:00 115/80 98 08/04/18 08:51 08/04/18 08:00 111/77 100 08/04/18 07:50 111/77 100 08/04/18 07:34 08/04/18 04:00 114/79 96 Weight Admit Weight 260 lb 11.2 oz Weight 262 lb 6.4 oz I&O: 08/03/18 08/04/18 08/05/18 06:59 06:59 06:59 Intake Total 1100 300 480 Output Total 800 250 Balance 300 50 480 Result Diagrams: 08/02/18 04:38 08/04/18 06:02 Additional Labs: Accuchecks 08/03/18 20:39 POC Glucose 143 H Phys Exam - Physical Examination HEENT: PERRLA, moist MMs Neck: no JVD, supple Respiratory: no wheezing rales+ Cardiovascular: RRR, no significant murmur Gastrointestinal: soft, non-tender, positive bowel sounds Musculoskeletal: pulses present, edema present Neurological: moves all 4 limbs mild right hemiparesis Dx/Plan (1) Acute CVA (cerebrovascular accident) Code(s): I63.9 - CEREBRAL INFARCTION, UNSPECIFIED Status: Acute Comment: with right hemiparesis (2) Acute metabolic encephalopathy Code(s): G93.41 - METABOLIC ENCEPHALOPATHY Status: Acute Comment: due to romulo /ckd (3) Acute on chronic combined systolic and diastolic congestive heart failure Code(s): I50.43 - ACUTE ON CHRONIC COMBINED SYSTOLIC AND DIASTOLIC HRT FAIL Status: Acute Comment: stage C, ef of 15% (4) COPD exacerbation Code(s): J44.1 - CHRONIC OBSTRUCTIVE PULMONARY DISEASE W (ACUTE) EXACERBATION Status: Acute (5) Cardiomyopathy Code(s): I42.9 - CARDIOMYOPATHY, UNSPECIFIED Status: Chronic Qualifiers: Cardiomyopathy type: unspecified Qualified Code(s): I42.9 - Cardiomyopathy , unspecified (6) Chronic anticoagulation Code(s): Z79.01 - CORRECTION (CURRENT) USE OF ANTICOAGULANTS Status: Chronic (7) Diabetes mellitus Code(s): E11.9 - TYPE 2 DIABETES MELLITUS WITHOUT COMPLICATIONS Status: Chronic Qualifiers: Diabetes mellitus type: type 2 Diabetes mellitus jail insulin use: without terminal superintendent use Diabetes mellitus complication status: with kidney complications Diabetes mellitus complication detail: with chronic kidney disease Chronic kidney disease stage: stage 3 (moderate) Qualified Code(s): E11.22 - Type 2 diabetes mellitus with diabetic chronic kidney disease; N18.3 - Chronic kidney disease, stage 3 (moderate) (8) Metabolic acidosis Code(s): E87.2 - ACIDOSIS Status: Acute (9) Physical deconditioning Code(s): R53.81 - OTHER MALAISE Status: Acute (10) Severe mitral regurgitation Code(s): I34.0 - NONRHEUMATIC MITRAL (VALVE) INSUFFICIENCY Status: Chronic (11) Severe tricuspid regurgitation Code(s): I07.1 - RHEUMATIC TRICUSPID INSUFFICIENCY Status: Chronic (12) Afib Code(s): I48.91 - UNSPECIFIED ATRIAL FIBRILLATION Status: Chronic Qualifiers: Atrial fibrillation type: chronic Qualified Code(s): I48.2 - Chronic atrial fibrillation - Plan will likely start HD to help with gen anasarca -: has very poor ef, need to see if he will tolerated HD -: poor prognosis -: continue amiodarone, asp, lasix high dose, dobutamine infusion -: nebs, prednisone, coumadin * . Review of Systems - Medications/Allergies Allergies/Adverse Reactions: Allergies Allergy/AdvReac Type Severity Reaction Status Date / Time No Known Drug Allergies Allergy Verified 08/01/18 23:08 Medications: Current Medications Acetaminophen (Tylenol) 650 mg PO Q4H PRN PRN Reason: Headache/Fever/Mild Pain (1-3) Last Admin: 08/03/18 12:54 Dose: 650 mg Albuterol/Ipratropium (Duoneb) 3 ml NEB [id number] [facility] Last Admin: 08/04/18 07:34 Dose: 3 ml Amiodarone HCl (Cordarone) 200 mg PO DAILY [facility] Last Admin: 08/04/18 08:49 Dose: 200 mg Aspirin (Aspirin Chewable) 81 mg PO DAILY [facility] Last Admin: 08/04/18 08:50 Dose: 81 mg Bisacodyl (Dulcolax) 10 mg OR DAILYPRN PRN PRN Reason: Constipation Dextrose/Water (Dextrose 50%) 25 gm SLOW IVP PRN PRN PRN Reason: Hypoglycemia Furosemide (Lasix) 80 mg SLOW IVP 0600,1400 NANY Glucagon (Glucagon) 1 mg IM PRN PRN PRN Reason: Hypoglycemia Guaifenesin/Dextromethorphan (Robitussin Dm) 15 ml PO Q4H PRN PRN Reason: Cough Dextrose/Water (D5w) 1,000 mls @ 0 mls/hr IV .Q0M PRN PRN Reason: Hypoglycemia Dobutamine HCl/Dextrose (Dobutamine 500 Mg/250 Ml) 250 mls @ 17.853 mls/hr IVPB INF NANY; Protocol Insulin Human Lispro (Humalog) 0 units SC .MODERATE SLIDING SC PRN PRN Reason: Moderate Correctional Scale Last Admin: 08/04/18 06:27 Dose: 2 unit Insulin Human Lispro (Humalog) 0 units SC .BEDTIME SLIDING SC PRN PRN Reason: Bedtime Correctional Scale Last Admin: 08/02/18 21:38 Dose: 3 unit Melatonin (Melatonin) 3 mg PO HS PRN PRN Reason: Insomnia Last Admin: 08/03/18 21:39 Dose: 3 mg Mometasone Furoate/Formoterol Fumar (Dulera 200 Mcg/5 Mcg Inhaler) 2 puff INH BID-RT [facility] Last Admin: 08/04/18 07:36 Dose: 2 puff Ondansetron HCl (Zofran) 4 mg SLOW IVP Q6H PRN PRN Reason: Nausea Last Admin: 08/03/18 15:01 Dose: 4 mg Ondansetron HCl (Zofran Odt) 4 mg PO Q6H PRN PRN Reason: Nausea Last Admin: 08/03/18 13:01 Dose: 4 mg Prednisone (Prednisone) 20 mg PO QAM-WM [facility] Last Admin: 08/04/18 08:49 Dose: 20 mg Senna/Docusate Sodium (Senokot S) 2 tab PO BID PRN PRN Reason: Constipation Sodium Chloride (Flush - Normal Saline) 10 ml IVF PRN PRN PRN Reason: Saline Flush Warfarin Sodium (Coumadin) 2 mg PO 1700 [facility] Last Admin: 08/03/18 17:36 Dose: 2 mg
[2018-08-04] MEDS ORDERED: Heparin 10,000 UNITS/ 10 ML VIAL ONE ×2 (15:00)
[2018-08-04] MEDS: Furosemide 100 MG/10 ML VIAL SLOW IVP SCH (15:15)
[2018-08-04 16:08] LABS: Anion Gap 18 mmol/L (10-20); BUN (Urea Nitrogen) 81 mg/dL (8.4-25.7); Calc. Creatinine Clearance 39 mL/min (70-130); Calcium 9.6 mg/dL (7.8-10.44); Carbon Dioxide 23 mmol/L (22-29); Chloride 95 mmol/L (98-107); Estimated GFR-MDRD 22; Glucose 142 mg/dL (70-105); Potassium 5.3 mmol/L (3.5-5.1); Sodium 131 mmol/L (136-145)
[2018-08-04 16:26] LABS: HBSAB Concentration 1.16 mIU/mL; HBSAg Index 0.31 S/CO (0-0.99); Hep B Core Total Ab Non-Reactive (NonReactive); Hep B Core Total Index 0.09 S/CO (0-0.79); Hep B Surf AB Non-Reactive (NonReactive); Hep B Surf Ag Non-Reactive S/CO (NonReactive); Hep C IgG Ab Non-Reactive (NonReactive); Hep C Index 0.14 S/CO (0-0.79)
[2018-08-04] MEDS: Warfarin Sodium 2 MG TAB PO SCH (17:24)
[2018-08-04] MEDS: DOBUTamine 500 mg/250 ml 250 ML IVPB SCH (19:55)
[2018-08-05 06:11] LABS: INR-International Normal Ratio 2.5; Prothrombin Time 27.1 SEC (12.0-14.7)
[2018-08-05] MEDS: Furosemide 100 MG/10 ML VIAL SLOW IVP SCH ×2 (06:26→14:03)
[2018-08-05 06:32] LABS: Anion Gap 18 mmol/L (10-20); BUN (Urea Nitrogen) 69 mg/dL (8.4-25.7); Calc. Creatinine Clearance 43 mL/min (70-130); Calcium 9.4 mg/dL (7.8-10.44); Carbon Dioxide 23 mmol/L (22-29); Chloride 95 mmol/L (98-107); Estimated GFR-MDRD 24; Glucose 151 mg/dL (70-105); Potassium 4.8 mmol/L (3.5-5.1); Sodium 131 mmol/L (136-145)
[2018-08-05 06:35] LABS: Hemoglobin 12.5 g/dL (14.0-18.0); MDiff Complete? YES; Mean Corpuscular Hemoglobin 30.4 pg (27.0-31.0); Mean Corpuscular Volume 95.3 fL (78.0-98.0); Mean Platelet Volume 9.7 fL (7.4-10.4); Platelet Count 71 thou/uL (130-400); RBC Distribution Width 19.5 % (11.5-14.5); Red Blood Cell (RBC) Count 4.11 mill/uL (4.70-6.10); White Blood Cell (WBC) Count 8.3 thou/uL (4.8-10.8)
[2018-08-05 06:36] LABS: Band 2 % (5-11); Hypochromia SLIGHT = 6-15 cells (100X) (0-5/hpf); Lymphocytes 4 % (21-51); Monocytes 7 % (0-10); Neutrophil 87 % (42-75); Nucleated RBC 1 % (0); Platelet Morphology Comment Appears Decreased; Target Cells SLIGHT = 2-5 cells (100X) (0-1/hpf)
[2018-08-05] MEDS: HumaLOG 300 UNITS/3 ML VIAL SC PRN ×2 (07:04→18:15)
[2018-08-05] MEDS: Mometasone/Formoterol 120 PUFF INHALER INH SCH ×2 (07:20→18:16)
--- NOTE | 2018-08-05 07:48 | OP ---
DATE OF PROCEDURE: 08/04/2018 PREOPERATIVE DIAGNOSIS: Need of dialysis access. POSTOPERATIVE DIAGNOSES: Need of dialysis access, acute renal failure on chronic kidney disease. PROCEDURE PERFORMED: Right femoral vein Trialysis catheter. ANESTHESIA: 1% Xylocaine. DESCRIPTION OF PROCEDURE: With the patient was at bedside, right groin was clipped of hair, prepared with ChloraPrep, and draped in routine fashion. Local anesthetic was infiltrated in the skin and subcutaneous tissue about the operative site. Trocar catheter was cannulated in the femoral vein, J-wire threaded, trocar catheter was removed. Skin site was enlarged sharply. Small and medium sized dilators were placed and removed into the femoral vein. Distal port of the Trialysis catheter was placed with J-wire into the femoral vein, secured with 3-0 nylon suture. Sterile dressings were applied. At each port, aspirated blood, flushed with heparinized saline solution. The patient tolerated the procedure well. Job ID: [id number]
--- NOTE | 2018-08-05 09:48 | ULT ---
Exam: Vein mapping for dialysis access HISTORY: End-stage renal disease. TECHNIQUE: Multiplanar grayscale and color Doppler images were obtained in a bilateral upper extremit y venous ultrasound. Spectral analysis of the Doppler waveforms of the vessels were performed. FINDINGS: The bilateral internal jugular veins are patent. There is thrombus in the left subclavian v ein which is nonocclusive. Right brachial artery 5.4 mm Right radial artery 1.8 mm Right ulnar artery 1.1 mm Left brachial artery 4.1 mm Left radial artery 2.0 mm Left ulnar artery 1.9 mm RIGHT CEPHALIC VEIN in millimeters 3.8 -- Shoulder 2.1 -- Upper arm 2.1 -- Mid upper arm 4.8 -- with nonocclusive thrombus-- Just proximal to the elbow 6.7 -- Just distal to the elbow 3.2 -- Forearm 2.8 -- Wrist RIGHT BASILIC VEIN in millimeters 5.7 -- Shoulder 5.8 -- Upper arm 6.0 -- Mid upper arm 4.4 -- Just proximal to the elbow 2.5 -- Just distal to the elbow 1.6 -- Forearm 1.1 -- Wrist LEFT CEPHALIC VEIN in millimeters 4.8 -- Shoulder 3.9 -- Upper arm 4.2 -- Mid upper arm 5.4 -- Just proximal to the elbow 2.9 -- Just distal to the elbow 3.5 -- Forearm 1.5 -- Wrist LEFT BASILIC VEIN in millimeters 4.6 -- Shoulder 5.4 -- Upper arm 5.4 -- Mid upper arm 3.7 -- Just proximal to the elbow 3.3 -- Just distal to the elbow 2.7 -- Forearm 1.4 -- Wrist IMPRESSION: 1. Partially occlusive thrombus distal left subclavian vein and the right cephalic vein at the level of the elbow. 2. Vein mapping for dialysis access as above.
[2018-08-05] MEDS: DOBUTamine 500 mg/250 ml 250 ML IVPB SCH (10:25)
--- NOTE | 2018-08-05 11:02 | ULT ---
RENAL ULTRASOUND: History: Acute kidney injury. Technique: Multiplanar grayscale and color doppler images were obtained in a renal ultrasound. FINDINGS: The kidneys are normal in echogenicity without hydronephrosis or calculi and measure 12.0 and 10.8 cm in length on the right and left, respectively. Limited visualization of the urinary bladder is unrem arkable. A small amount of free fluid is seen in the left upper quadrant and right upper quadrant of the abdomen. IMPRESSION: 1. No significant renal abnormality. 2. Trace ascites. POS: H
--- NOTE | 2018-08-05 11:03 | PRG ---
DATE OF SERVICE: SUBJECTIVE: Guilherme Hernadez this morning is still short of breath, but better. He has dialysis catheter placed for CRF. OBJECTIVE: VITAL SIGNS: Temperature 97, respirations 16, saturations are 97 on room air, blood pressure 125/83. CHEST: No wheezing or crackles. CARDIAC: Normal S1 and S2. No gallops. ABDOMEN: No masses. LABORATORY DATA: Platelet count is 71,000, decreased since admission. H and H 12/37. INR is 2.5. BUN and creatinine are elevated. IMPRESSION: Congestive heart failure, respiratory failure, markedly depressed EF, cardiac arrhythmias, chronic obstructive pulmonary disease. PLAN: I agree with dialysis input. Cardiology decide ongoing care. We will follow. Job ID: [id number] [facility]
[2018-08-05] MEDS: predniSONE 20 MG TAB PO SCH (11:58)
[2018-08-05] MEDS: Aspirin Chewable 81 MG TAB PO SCH (11:58)
[2018-08-05] MEDS: Amiodarone 200 MG TAB PO SCH (11:58)
--- NOTE | 2018-08-05 13:07 | PRG ---
DATE OF SERVICE: 08/05/2018 SUBJECTIVE: This is a 57-year-old gentleman, being seen for end-stage renal disease. The patient denies any nausea, vomiting, or chest pain. PHYSICAL EXAMINATION: CONSTITUTIONAL: The patient is awake and alert. VITAL SIGNS: Afebrile. Pulse 86, breathing 16, blood pressure 123/66. GENERAL APPEARANCE AND MENTAL STATUS: Fair. HEAD/NECK: Normocephalic. Atraumatic. EYES: EOMI. No deformity. EARS: Clear. No ulcers. NOSE: Intact. No lesions. MOUTH: Clear. No discharge. THROAT: Clear. No exudate. LUNGS: Clear. No crackles. CARDIAC: S1, S2. No rub. ABDOMEN: Benign. Bowel sounds positive. GENITALIA/RECTUM: José absent. BACK/EXTREMITIES: Edema 0+. NEUROLOGICAL: Alert and motor intact. SKIN: LYMPHATICS: LABORATORY DATA: . IMPRESSION AND PLAN: 1. chronic kidney disease, plan dialysis. 2. Hypertension, stable. 3. Anemia, stable. 4. Medication based on GFR appropriate. Job ID: [id number]
[2018-08-05] MEDS: Metolazone 5 MG TAB PO SCH (14:03)
[2018-08-05] MEDS ORDERED: Heparin 10,000 UNITS/ 10 ML VIAL ONE (15:00)
--- NOTE | 2018-08-05 17:12 | RAD ---
RADIOGRAPH CHEST 1 VIEW: Date: 08/05/18 Time: 3:51 p.m. HISTORY: 57-year-old male with chest pain. COMPARISON: 08/01/18. FINDINGS: Left subclavian AICD. Cardiomegaly. Pulmonary venous engorgement. Diffusely prominent interstitial ma rkings appears slightly improved since the prior study. This difference may or may not be due to posi tional differences. It may or may not represent mild pulmonary interstitial edema. No consolidation o r pneumothorax. IMPRESSION: 1. Cardiomegaly and at least mild congestive heart failure. 2. Automatic implantable cardioverter/defibrillator. JN [] POS: TPC
[2018-08-05] MEDS: ALPRAZolam 0.25 MG TAB PO PRN (22:08)
[2018-08-06] MEDS: DOBUTamine 500 mg/250 ml 250 ML IVPB SCH ×2 (01:36→17:27)
[2018-08-06] MEDS: Furosemide 100 MG/10 ML VIAL SLOW IVP SCH ×2 (06:14→15:16)
[2018-08-06] MEDS: Mometasone/Formoterol 120 PUFF INHALER INH SCH ×2 (07:01→18:54)
[2018-08-06] MEDS: Metolazone 5 MG TAB PO SCH (08:53)
[2018-08-06] MEDS: Aspirin Chewable 81 MG TAB PO SCH (08:53)
[2018-08-06] MEDS: Amiodarone 200 MG TAB PO SCH (08:54)
[2018-08-06] MEDS: predniSONE 20 MG TAB PO SCH (08:54)
[2018-08-06 09:27] LABS: INR-International Normal Ratio 2.3; Prothrombin Time 25.4 SEC (12.0-14.7)
--- NOTE | 2018-08-06 09:27 | PRG ---
DATE OF SERVICE: 08/06/2018 SUBJECTIVE: This morning, he is awake, alert, and responsive. OBJECTIVE: VITAL SIGNS: Saturations are 96% on room air, temperature 97, pulse 82, respiratory rate 15, blood pressure 105/67. Denies any pain or discomfort. CHEST: No wheezing. CARDIAC: Normal S1 and S2. No gallops. ABDOMEN: No masses. LABORATORY DATA: X-ray still shows cardiomegaly. AICD in place. IMPRESSION AND PLAN: [id number] renal failure, respiratory failure, chronic obstructive pulmonary disease, severe deconditioning, and congestive heart failure. Disposition as per Nephrology. Continue neb treatments. We will follow. Job ID: [id number]
[2018-08-06 09:37] LABS: Albumin 3.1 g/dL (3.5-5.0); Anion Gap 15 mmol/L (10-20); BUN (Urea Nitrogen) 62 mg/dL (8.4-25.7); BUN/Creatinine Ratio 20.95; Calc. Creatinine Clearance 45 mL/min (70-130); Calcium 9.6 mg/dL (7.8-10.44); Carbon Dioxide 31 mmol/L (22-29); Chloride 93 mmol/L (98-107); Estimated GFR-MDRD 27; Glucose 107 mg/dL (70-105); Phosphorus 3.4 mg/dL (2.3-4.7); Sodium 135 mmol/L (136-145)
--- NOTE | 2018-08-06 11:41 | PDOC.PN ---
- Subjective Encounter Start Date: 08/06/18 Encounter Start Time: 10:00 Subjective: awake, sitting on bed, says he has ambulated in room -: no chest pain or palpitations -: feels better, waiting for his breakfast to arrive - Objective Resuscitation Status - Order Detail: 08/01/18 20:34 Resuscitation Status Routine Resuscitation Status: FULL: Full Resuscitation Discussed with: POA: daughter Ms.Rachel Mel GLOVER Reviewed: Yes Vital Signs & Weight: Vital Signs (12 hours) Temp Pulse Resp BP BP Pulse Ox 08/06/18 08:00 97.9 F 73 16 118/70 96 08/06/18 07:01 18 96 08/06/18 06:55 82 16 96 08/06/18 03:45 97.4 F L 72 20 105/67 91 L Weight Admit Weight 260 lb 11.2 oz Weight 249 lb 5 oz I&O: 08/05/18 08/06/18 08/07/18 06:59 06:59 06:59 Intake Total 1410 1016 Output Total 1350 4300 750 Balance 60 -3284 -750 Result Diagrams: 08/05/18 05:16 08/06/18 08:55 Additional Labs: Accuchecks 08/06/18 08/06/18 08/05/18 10:19 05:21 22:46 POC Glucose 123 H 139 H 98 08/05/18 08/05/18 21:35 16:43 POC Glucose 59 L* 329 H Phys Exam - Physical Examination HEENT: PERRLA, moist MMs Neck: no JVD, supple Respiratory: no wheezing, no rales Cardiovascular: RRR murmur+ Gastrointestinal: soft, non-tender, positive bowel sounds Musculoskeletal: pulses present, edema present Neurological: non-focal, moves all 4 limbs Dx/Plan (1) Acute CVA (cerebrovascular accident) Code(s): I63.9 - CEREBRAL INFARCTION, UNSPECIFIED Status: Acute Comment: with right hemiparesis (2) Acute metabolic encephalopathy Code(s): G93.41 - METABOLIC ENCEPHALOPATHY Status: Acute Comment: due to romulo /ckd (3) Acute on chronic combined systolic and diastolic congestive heart failure Code(s): I50.43 - ACUTE ON CHRONIC COMBINED SYSTOLIC AND DIASTOLIC HRT FAIL Status: Acute Comment: stage C, ef of 15% (4) COPD exacerbation Code(s): J44.1 - CHRONIC OBSTRUCTIVE PULMONARY DISEASE W (ACUTE) EXACERBATION Status: Acute (5) Cardiomyopathy Code(s): I42.9 - CARDIOMYOPATHY, UNSPECIFIED Status: Chronic Qualifiers: Cardiomyopathy type: unspecified Qualified Code(s): I42.9 - Cardiomyopathy , unspecified (6) Chronic anticoagulation Code(s): Z79.01 - FPC (CURRENT) USE OF ANTICOAGULANTS Status: Chronic (7) Diabetes mellitus Code(s): E11.9 - TYPE 2 DIABETES MELLITUS WITHOUT COMPLICATIONS Status: Chronic Qualifiers: Diabetes mellitus type: type 2 Diabetes mellitus terminal operations supervisor insulin use: without terminal operations supervisor use Diabetes mellitus complication status: with kidney complications Diabetes mellitus complication detail: with chronic kidney disease Chronic kidney disease stage: stage 3 (moderate) Qualified Code(s): E11.22 - Type 2 diabetes mellitus with diabetic chronic kidney disease; N18.3 - Chronic kidney disease, stage 3 (moderate) (8) Metabolic acidosis Code(s): E87.2 - ACIDOSIS Status: Resolved (9) Physical deconditioning Code(s): R53.81 - OTHER MALAISE Status: Acute (10) Severe mitral regurgitation Code(s): I34.0 - NONRHEUMATIC MITRAL (VALVE) INSUFFICIENCY Status: Chronic (11) Severe tricuspid regurgitation Code(s): I07.1 - RHEUMATIC TRICUSPID INSUFFICIENCY Status: Chronic (12) Afib Code(s): I48.91 - UNSPECIFIED ATRIAL FIBRILLATION Status: Chronic Qualifiers: Atrial fibrillation type: chronic Qualified Code(s): I48.2 - Chronic atrial fibrillation - Plan had HD yesterday for the first time -: may dc dobutamine if ok with cardio -: dc lasix and zaroxolyn, pt on HD now -: continue asp, amiodarone, lipitor, add home dose coreg -: nebs, prednisone, dulera. To ambulate with PT as tolerated * . Has right femoral trialysis cath, may need access in upper extre/jugalar when sbp stabilizes. Will need out pt HD, likely placement to rehab before home. Review of Systems - Medications/Allergies Allergies/Adverse Reactions: Allergies Allergy/AdvReac Type Severity Reaction Status Date / Time No Known Drug Allergies Allergy Verified 08/01/18 23:08 Medications: Current Medications Acetaminophen (Tylenol) 650 mg PO Q4H PRN PRN Reason: Headache/Fever/Mild Pain (1-3) Last Admin: 08/03/18 12:54 Dose: 650 mg Albuterol/Ipratropium (Duoneb) 3 ml NEB [id number] [facility] Last Admin: 08/06/18 06:55 Dose: 3 ml Alprazolam (Xanax) 0.25 mg PO TIDPRN PRN PRN Reason: Anxiety Last Admin: 08/05/18 22:08 Dose: 0.25 mg Amiodarone HCl (Cordarone) 200 mg PO DAILY [facility] Last Admin: 08/06/18 08:54 Dose: 200 mg Aspirin (Aspirin Chewable) 81 mg PO DAILY [facility] Last Admin: 08/06/18 08:53 Dose: 81 mg Bisacodyl (Dulcolax) 10 mg [place] DAILYPRN PRN PRN Reason: Constipation Dextrose/Water (Dextrose 50%) 25 gm SLOW IVP PRN PRN PRN Reason: Hypoglycemia Furosemide (Lasix) 80 mg SLOW IVP 0600,1400 [facility] Last Admin: 08/06/18 06:14 Dose: 80 mg Glucagon (Glucagon) 1 mg IM PRN PRN PRN Reason: Hypoglycemia Guaifenesin/Dextromethorphan (Robitussin Dm) 15 ml PO Q4H PRN PRN Reason: Cough Dextrose/Water (D5w) 1,000 mls @ 0 mls/hr IV .Q0M PRN PRN Reason: Hypoglycemia Dobutamine HCl/Dextrose (Dobutamine 500 Mg/250 Ml) 250 mls @ 17.853 mls/hr IVPB INF [facility]; Protocol Last Admin: 08/06/18 01:36 Dose: 250 mls Insulin Human Lispro (Humalog) 0 units SC .BEDTIME SLIDING SC PRN PRN Reason: Bedtime Correctional Scale Last Admin: 08/02/18 21:38 Dose: 3 unit Insulin Human Lispro (Humalog) 0 units SC .MILD SLIDING SCALE PRN PRN Reason: Mild Correctional Scale Melatonin (Melatonin) 3 mg PO HS PRN PRN Reason: Insomnia Last Admin: 08/03/18 21:39 Dose: 3 mg Metolazone (Zaroxolyn) 5 mg PO 0830 [facility] Last Admin: 08/06/18 08:53 Dose: 5 mg Mometasone Furoate/Formoterol Fumar (Dulera 200 Mcg/5 Mcg Inhaler) 2 puff INH BID-RT [facility] Last Admin: 08/06/18 07:01 Dose: 2 puff Ondansetron HCl (Zofran) 4 mg SLOW IVP Q6H PRN PRN Reason: Nausea Last Admin: 08/03/18 15:01 Dose: 4 mg Ondansetron HCl (Zofran Odt) 4 mg PO Q6H PRN PRN Reason: Nausea Last Admin: 08/03/18 13:01 Dose: 4 mg Prednisone (Prednisone) 20 mg PO QAM-WM [facility] Last Admin: 08/06/18 08:54 Dose: 20 mg Senna/Docusate Sodium (Senokot S) 2 tab PO BID PRN PRN Reason: Constipation Sodium Chloride (Flush - Normal Saline) 10 ml IVF PRN PRN PRN Reason: Saline Flush
[2018-08-06] MEDS ORDERED: Metolazone 5 MG TAB PO SCH ×2 (13:00→14:30)
--- NOTE | 2018-08-06 14:37 | PRG ---
DATE OF SERVICE: 08/06/2018 SUBJECTIVE: A 57-year-old gentleman, being seen for end-stage renal disease. The patient denies nausea, vomiting, or chest pain. OBJECTIVE: CONSTITUTIONAL: The patient is awake and alert. VITAL SIGNS: Afebrile, pulse 73, breathing 16, blood pressure 118/70. GENERAL APPEARANCE AND MENTAL STATUS: Fair. HEAD/NECK: Normocephalic. Atraumatic. EYES: EOMI. No deformity. EARS: Clear. No ulcers. NOSE: Intact. No lesions. MOUTH: Clear. No discharge. THROAT: Clear. No exudate. LUNGS: Clear. No crackles. CARDIAC: S1, S2. No rub. ABDOMEN: Benign. Bowel sounds positive. GENITALIA/RECTUM: José absent. BACK/EXTREMITIES: Edema 0+. NEUROLOGICAL: Alert and motor intact. SKIN: LYMPHATICS: LABORATORY DATA: Hemoglobin 12.5. Potassium 4. ASSESSMENT AND PLAN: 1. Stage 6 chronic kidney disease. Plan dialysis. 2. Hypertension, stable. 3. Anemia, stable. 4. Congestive heart failure. Continue both diuretics as the patient does have residual renal function. Job ID: [id number]
[2018-08-06] MEDS ORDERED: Heparin 10,000 UNITS/ 10 ML VIAL ONE (15:00)
[2018-08-06] MEDS ORDERED: CEFAZOLIN 2 GM in Premix Bag 1 BAG IVPB SCH (17:00)
[2018-08-06] MEDS: HumaLOG 300 UNITS/3 ML VIAL SC PRN (18:35)
[2018-08-06] MEDS: Acetaminophen 325 MG TAB PO PRN (20:24)
[2018-08-06] MEDS: Atorvastatin Calcium 20 MG TAB PO SCH (20:24)
--- NOTE | 2018-08-06 20:26 | EKG ---
Test Reason : Blood Pressure : / mmHG Vent. Rate : 077 BPM Atrial Rate : 077 BPM P-R Int : 174 ms QRS Dur : 126 ms QT Int : 436 ms P-R-T Axes : 053 125 026 degrees QTc Int : 493 ms Normal sinus rhythm Non-specific intra-ventricular conduction block Lateral infarct , age undetermined Abnormal ECG When compared with ECG of 01-AUG-2018 14:38, (Unconfirmed) Fusion complexes are no longer Present MI interval has decreased Confirmed by TINA ECHEVERRIA, SVini ([id number]) on 08/06/2018 8:26:17 PM Referred By: Confirmed By:DR. Julio WILDER MD
[2018-08-06] MEDS ORDERED: Carvedilol 6.25 MG TAB PO SCH (21:00)
[2018-08-06] MEDS: ALPRAZolam 0.25 MG TAB PO PRN (23:27)
[2018-08-07 01:24] LABS: Anion Gap 15 mmol/L (10-20); BUN (Urea Nitrogen) 44 mg/dL (8.4-25.7); Calc. Creatinine Clearance 54 mL/min (70-130); Calcium 9.1 mg/dL (7.8-10.44); Carbon Dioxide 31 mmol/L (22-29); Chloride 93 mmol/L (98-107); Estimated GFR-MDRD 33; Glucose 108 mg/dL (70-105); Potassium 3.8 mmol/L (3.5-5.1); Sodium 135 mmol/L (136-145)
[2018-08-07 01:28] LABS: Hemoglobin 11.4 g/dL (14.0-18.0); Hypochromia MODERATE=16-30 cells (100X) (0-5/hpf); Lymphocytes 5 % (21-51); MDiff Complete? YES; Mean Corpuscular HGB CONC 31.9 g/dL (32.0-36.0); Mean Corpuscular Hemoglobin 30.1 pg (27.0-31.0); Mean Corpuscular Volume 94.1 fL (78.0-98.0); Mean Platelet Volume 10.6 fL (7.4-10.4); Monocytes 7 % (0-10); Neutrophil 88 % (42-75); Nucleated RBC 2 % (0); Platelet Count 43 thou/uL (130-400); Platelet Morphology Comment Appears Decreased; RBC Distribution Width 19.2 % (11.5-14.5); Red Blood Cell (RBC) Count 3.79 mill/uL (4.70-6.10); Target Cells SLIGHT = 2-5 cells (100X) (0-1/hpf); White Blood Cell (WBC) Count 7.7 thou/uL (4.8-10.8)
[2018-08-07] MEDS: Mometasone/Formoterol 120 PUFF INHALER INH SCH ×2 (06:28→18:34)
[2018-08-07 07:03] LABS: INR-International Normal Ratio 2.2; Prothrombin Time 24.8 SEC (12.0-14.7)
[2018-08-07] MEDS: DOBUTamine 500 mg/250 ml 250 ML IVPB SCH (07:44)
[2018-08-07] MEDS: Furosemide 100 MG/10 ML VIAL SLOW IVP SCH ×2 (08:07→15:05)
--- NOTE | 2018-08-07 10:16 | PDOC.PN ---
- Subjective Encounter Start Date: 08/07/18 Encounter Start Time: 09:00 Subjective: awake, is npo for fistula placement/HD access -: no chest pain or sob - Objective Resuscitation Status - Order Detail: 08/01/18 20:34 Resuscitation Status Routine Resuscitation Status: FULL: Full Resuscitation Discussed with: POA: daughter Ms.Rachel Mel GLOVER Reviewed: Yes Vital Signs & Weight: Vital Signs (12 hours) Temp Pulse Resp BP Pulse Ox 08/07/18 08:00 95 08/07/18 07:42 97.7 F 70 18 107/71 95 08/07/18 06:30 70 16 92 L 08/07/18 06:28 70 16 92 L 08/07/18 03:51 97.9 F 74 16 96/54 L 95 08/07/18 00:37 129 H 20 95 08/07/18 00:00 98.1 F 120 H 18 114/80 98 Weight Admit Weight 260 lb 11.2 oz Weight 237 lb 8 oz I&O: 08/06/18 08/07/18 08/08/18 06:59 06:59 06:59 Intake Total 1016 1676 Output Total 4300 2710 Balance -3284 -1034 Result Diagrams: 08/07/18 00:53 08/07/18 00:53 Additional Labs: Accuchecks 08/07/18 08/06/18 08/06/18 06:03 20:22 17:00 POC Glucose 111 H 149 H 207 H 08/06/18 10:19 POC Glucose 123 H Phys Exam - Physical Examination HEENT: PERRLA, moist MMs Neck: no JVD, supple Respiratory: no wheezing, no rales Cardiovascular: RRR, no significant murmur Gastrointestinal: soft, non-tender, positive bowel sounds Musculoskeletal: pulses present, edema present Neurological: moves all 4 limbs mild right hemiparesis with strength of 4/5 responds well to verbal questions, a bit emotional Dx/Plan (1) Acute CVA (cerebrovascular accident) Code(s): I63.9 - CEREBRAL INFARCTION, UNSPECIFIED Status: Acute Comment: with right hemiparesis (2) Acute metabolic encephalopathy Code(s): G93.41 - METABOLIC ENCEPHALOPATHY Status: Acute Comment: due to romulo /ckd (3) Acute on chronic combined systolic and diastolic congestive heart failure Code(s): I50.43 - ACUTE ON CHRONIC COMBINED SYSTOLIC AND DIASTOLIC HRT FAIL Status: Acute Comment: stage C, ef of 15% (4) COPD exacerbation Code(s): J44.1 - CHRONIC OBSTRUCTIVE PULMONARY DISEASE W (ACUTE) EXACERBATION Status: Resolved (5) Cardiomyopathy Code(s): I42.9 - CARDIOMYOPATHY, UNSPECIFIED Status: Chronic Qualifiers: Cardiomyopathy type: unspecified Qualified Code(s): I42.9 - Cardiomyopathy , unspecified (6) Chronic anticoagulation Code(s): Z79.01 - SUPERVISOR FLOOR ASSEMBLY (CURRENT) USE OF ANTICOAGULANTS Status: Chronic (7) Diabetes mellitus Code(s): E11.9 - TYPE 2 DIABETES MELLITUS WITHOUT COMPLICATIONS Status: Chronic Qualifiers: Diabetes mellitus type: type 2 Diabetes mellitus jail insulin use: without buttermilk drier operator use Diabetes mellitus complication status: with kidney complications Diabetes mellitus complication detail: with chronic kidney disease Chronic kidney disease stage: stage 3 (moderate) Qualified Code(s): E11.22 - Type 2 diabetes mellitus with diabetic chronic kidney disease; N18.3 - Chronic kidney disease, stage 3 (moderate) (8) Metabolic acidosis Code(s): E87.2 - ACIDOSIS Status: Resolved (9) Physical deconditioning Code(s): R53.81 - OTHER MALAISE Status: Acute (10) Severe mitral regurgitation Code(s): I34.0 - NONRHEUMATIC MITRAL (VALVE) INSUFFICIENCY Status: Chronic (11) Severe tricuspid regurgitation Code(s): I07.1 - RHEUMATIC TRICUSPID INSUFFICIENCY Status: Chronic (12) Afib Code(s): I48.91 - UNSPECIFIED ATRIAL FIBRILLATION Status: Chronic Qualifiers: Atrial fibrillation type: chronic Qualified Code(s): I48.2 - Chronic atrial fibrillation - Plan hemostable -: is on lasix for residual renal function, was started on HD this admission -: continue asp, amiodarone, prednisone, nebs, dulera, coreg, lipitor -: mobilize with PT as tolerated, is still on dobutamine and zaroxolyn -: needs out pt HD chair, likely placement * . Review of Systems - Medications/Allergies Allergies/Adverse Reactions: Allergies Allergy/AdvReac Type Severity Reaction Status Date / Time No Known Drug Allergies Allergy Verified 08/01/18 23:08 Medications: Current Medications Acetaminophen (Tylenol) 650 mg PO Q4H PRN PRN Reason: Headache/Fever/Mild Pain (1-3) Last Admin: 08/06/18 20:24 Dose: 650 mg Albuterol/Ipratropium (Duoneb) 3 ml NEB [id number] [facility] Last Admin: 08/07/18 06:30 Dose: 3 ml Alprazolam (Xanax) 0.25 mg PO TIDPRN PRN PRN Reason: Anxiety Last Admin: 08/06/18 23:27 Dose: 0.25 mg Amiodarone HCl (Cordarone) 200 mg PO DAILY [facility] Last Admin: 08/06/18 08:54 Dose: 200 mg Aspirin (Aspirin Chewable) 81 mg PO DAILY [facility] Last Admin: 08/06/18 08:53 Dose: 81 mg Atorvastatin Calcium (Lipitor) 20 mg PO HS [facility] Last Admin: 08/06/18 20:24 Dose: 20 mg Bisacodyl (Dulcolax) 10 mg [place] DAILYPRN PRN PRN Reason: Constipation Dextrose/Water (Dextrose 50%) 25 gm SLOW IVP PRN PRN PRN Reason: Hypoglycemia Furosemide (Lasix) 80 mg SLOW IVP 0600,1400 [facility] Last Admin: 08/07/18 08:07 Dose: Not Given Glucagon (Glucagon) 1 mg IM PRN PRN PRN Reason: Hypoglycemia Guaifenesin/Dextromethorphan (Robitussin Dm) 15 ml PO Q4H PRN PRN Reason: Cough Dextrose/Water (D5w) 1,000 mls @ 0 mls/hr IV .Q0M PRN PRN Reason: Hypoglycemia Dobutamine HCl/Dextrose (Dobutamine 500 Mg/250 Ml) 250 mls @ 17.853 mls/hr IVPB INF [facility]; Protocol Last Admin: 08/07/18 07:44 Dose: 250 mls Cefazolin Sodium/Dextrose 2 gm (/ Device) 50 mls @ 100 mls/hr IVPB ONCALL-OR [facility] Stop: 08/07/18 12:00 Insulin Human Lispro (Humalog) 0 units SC .BEDTIME SLIDING SC PRN PRN Reason: Bedtime Correctional Scale Last Admin: 08/02/18 21:38 Dose: 3 unit Insulin Human Lispro (Humalog) 0 units SC .MILD SLIDING SCALE PRN PRN Reason: Mild Correctional Scale Last Admin: 08/06/18 18:35 Dose: 3 unit Melatonin (Melatonin) 3 mg PO HS PRN PRN Reason: Insomnia Last Admin: 08/03/18 21:39 Dose: 3 mg Metolazone (Zaroxolyn) 5 mg PO 0830 [facility] Mometasone Furoate/Formoterol Fumar (Dulera 200 Mcg/5 Mcg Inhaler) 2 puff INH BID-RT [facility] Last Admin: 08/07/18 06:28 Dose: 2 puff Ondansetron HCl (Zofran) 4 mg SLOW IVP Q6H PRN PRN Reason: Nausea Last Admin: 08/03/18 15:01 Dose: 4 mg Ondansetron HCl (Zofran Odt) 4 mg PO Q6H PRN PRN Reason: Nausea Last Admin: 08/03/18 13:01 Dose: 4 mg Prednisone (Prednisone) 20 mg PO QAM-WM [facility] Last Admin: 08/06/18 08:54 Dose: 20 mg Senna/Docusate Sodium (Senokot S) 2 tab PO BID PRN PRN Reason: Constipation Sodium Chloride (Flush - Normal Saline) 10 ml IVF PRN PRN PRN Reason: Saline Flush
[2018-08-07] MEDS ORDERED: Midazolam HCl 2 mg/2 ml Vial ONE (11:02)
[2018-08-07] MEDS ORDERED: Ketamine 50 MG/ML (10ML VIAL) ONE (11:02)
[2018-08-07] MEDS ORDERED: Bupivacaine HCl 0.5%/Epinephrine 1:200,000/PF 30 ml Vial ONE (11:11)
[2018-08-07] MEDS ORDERED: Sodium Chloride 0.9% 0 ML ONE (11:11)
[2018-08-07] MEDS ORDERED: Lidocaine 2% PF 5 ML VIAL ONE (11:11)
[2018-08-07] MEDS ORDERED: Heparin 10,000 UNITS/1 ML VIAL ONE (11:11)
--- NOTE | 2018-08-07 11:34 | CON ---
DATE OF CONSULTATION: HISTORY OF PRESENT ILLNESS: Guilherme Hernadez is a 57-year-old black male patient with acute on chronic renal failure. I placed hemodialysis catheter in his groin recently. Admitted by Hospitalist Service on 08/01/2018. He has been seen by Pulmonary Medicine and Nephrology, Dr. Rider. PAST MEDICAL HISTORY: Questionable history of DVT, atrial fibrillation, CHF, history of DC. He has an AICD. He has a pacemaker, left subclavian vein. History of hypertension and dyslipidemia. PAST SURGICAL HISTORY: Includes open cholecystectomy, nonischemic cardiomyopathy with EF of 15-20%. MEDICATIONS: Outpatient include amiodarone, atorvastatin, Coreg, Lasix, metolazone, K-Dur, Coumadin 2 mg a day. SOCIAL HISTORY: Tobacco cessation a month ago, two packs a day prior to that. Alcohol, occasionally. PHYSICAL EXAMINATION: VITAL SIGNS: 6 feet 1 inch, weight 249 pounds, 32 BMI, temperature 98.3, pulse 68, blood pressure 121/87. LUNGS: Clear to auscultation. CARDIAC: A pacemaker left subclavian. Regular rate and rhythm without murmur or gallop. ABDOMEN: Soft. Right groin catheter. EXTREMITIES: Edematous. ASSESSMENT/PLAN: Renal failure. We will plan cuffed tunneled dialysis catheter. We have placed temporary hemodialysis catheter. He continues to bleed around it and I have discussed with Dr. Rider the patient will need a cuffed tunneled dialysis catheter for a period of time. We will place this catheter to facilitate diuresis and resolution of his edema. We will also place a central line, preserve his veins for dialysis access in the future. Job ID: [id number]
--- NOTE | 2018-08-07 12:35 | PRG ---
DATE OF SERVICE: 08/07/2018 SUBJECTIVE: This 57-year-old gentleman being seen for end-stage kidney disease. The patient denies any nausea, vomiting or chest pain. OBJECTIVE: CONSTITUTIONAL: The patient is awake and alert. VITAL SIGNS: Afebrile, pulse 75, breathing 16, blood pressure 107/71. GENERAL APPEARANCE AND MENTAL STATUS: Fair. HEAD/NECK: Normocephalic. Atraumatic. EYES: EOMI. No deformity. EARS: Clear. No ulcers. NOSE: Intact. No lesions. MOUTH: Clear. No discharge. THROAT: Clear. No exudate. LUNGS: Clear. No crackles. CARDIAC: S1, S2. No rub. ABDOMEN: Benign. Bowel sounds positive. GENITALIA/RECTUM: José absent. BACK/EXTREMITIES: Edema 0+. NEUROLOGICAL: Alert and motor intact. SKIN: LYMPHATICS: LABORATORY DATA: Labs show hemoglobin of 11.4. ASSESSMENT AND PLAN: 1. Stage 6 chronic kidney disease. Plan dialysis today. 2. Hypertension, stable. 3. Anemia, stable. 4. Medication based on GFR, appropriate. Job ID: [id number]
[2018-08-07 13:21] VITALS: BMI 31.3
[2018-08-07] MEDS: Ondansetron PF 4 MG/2 ML Vial SLOW IVP PRN (14:36)
[2018-08-07] MEDS ORDERED: Heparin 10,000 UNITS/ 10 ML VIAL ONE (15:00)
[2018-08-07] MEDS: predniSONE 20 MG TAB PO SCH ×4 (15:03→16:20)
[2018-08-07] MEDS: Amiodarone 200 MG TAB PO SCH (15:04)
[2018-08-07] MEDS: Metolazone 5 MG TAB PO SCH (15:04)
[2018-08-07] MEDS: Aspirin Chewable 81 MG TAB PO SCH (15:04)
--- NOTE | 2018-08-07 15:47 | RAD ---
RADIOGRAPH CHEST 1 VIEW: Date: 08/07/18 Time: 12:48 p.m. HISTORY: 57-year-old male, status post dialysis catheter placement. COMPARISON: 08/05/18, 3:51 p.m. FINDINGS: There is a new double lumen dialysis catheter looped over the right medial supraclavicular neck, then descends vertically such that distal tips overlie the right side of the mediastinum, presumably in t he superior vena cava. No interval change in the severe cardiomegaly, and diffuse pulmonary venous en gorgement. Left subclavian AICD. No pneumothorax identified. Diffusely prominent interstitial marking s. IMPRESSION: 1. Right sided double lumen hemodialysis catheter placement, presumably through the right internal jugular vein. 2. No pneumothorax. 3. Severe cardiomegaly and at least minimal or mild congestive heart failure. THALIA [] POS: JAKE
--- NOTE | 2018-08-07 16:47 | PRG ---
DATE OF SERVICE: 08/07/2018 SUBJECTIVE: This morning, he is doing better. He is being dialyzed. OBJECTIVE: VITAL SIGNS: Saturations are 98% on room air. Temperature 97, pulse 65, respirations 16, and blood pressure 110/78. CHEST: No wheezing or crackles. CARDIAC: Normal S1 and S2. No gallops. LABORATORY DATA: CBC unremarkable. Platelet count is low at 43. Creatinine is 2.4. ASSESSMENT AND PLAN: 1. Congestive heart failure. 2. Chronic obstructive pulmonary disease. 3. Renal failure. 4. Cardiomyopathy, status post pacemaker. Most of his problems appears to be cardiac and renal in origin. We will continue neb treatments. Call if needed. Job ID: [id number]
--- NOTE | 2018-08-07 19:18 | OP ---
DATE OF PROCEDURE: 08/07/2018 PREOPERATIVE DIAGNOSES: Acute on chronic renal failure with congestive heart failure and automatic implantable cardioverter-defibrillator left chest with bleeding from his temporary dialysis catheter right groin. PROCEDURES PERFORMED: Placement of right internal jugular cuffed tunneled hemodialysis catheter, AngioDynamics pre-curved, left internal jugular central line, fluoroscopy and ultrasound used. ANESTHESIA: TIVA, local 0.5% Marcaine with epinephrine 30 mL mixed with 2% Xylocaine 10 mL. DESCRIPTION OF PROCEDURE: The patient was taken to the operating room, where under IV sedation, neck and chest were prepared with ChloraPrep and draped in routine fashion, local anesthetic mixture 0.5% Marcaine with epinephrine 30 mL mixed with 2% xylocaine 10 mL, infiltrated in the skin and subcutaneous tissue about the operative site. Using ultrasound guidance, both right and left internal jugular veins were cannulated with trocar catheter. J-wire was threaded. Trocar catheter removed. Skin was enlarged sharply on both sides and a stab incision was made over the right chest. Using a tunneling device, pre-curved AngioDynamics cuffed-tunneled, hemodialysis catheter tunneled between the 2 incisions, placed the fabric cuff in the skin exit site, catheter secured with 2 interrupted suture of 3-0 nylon and sterile dressing applied. Small and medium size dilators were placed with J-wire in the internal jugular vein removed. Dilator and Peel-Away sheath placed over the J-wire into the superior vena cava and J-wire and dilator removed. Catheter placed with Peel-Away sheath. Peel-Away sheath removed. On the left side, Seldinger technique was used to place a triple-lumen catheter, removed the J-wire, securing the catheter with 3-0 nylon sutures. All ports aspirated blood and flushed with saline solution. The hemodialysis catheter flushed with heparinized saline solution 1000 units heparin per mL indicating volume of the port. Final fluoroscopic images revealed good line placement. Job ID: [id number]
[2018-08-07] MEDS: Atorvastatin Calcium 20 MG TAB PO SCH (20:20)
[2018-08-07] MEDS: ALPRAZolam 0.25 MG TAB PO PRN (23:52)
[2018-08-08] MEDS ORDERED: Lorazepam 2 MG/ML VIAL SLOW IVP PRN (00:49)
[2018-08-08 05:52] LABS: INR-International Normal Ratio 2.1; Prothrombin Time 23.2 SEC (12.0-14.7)
[2018-08-08] MEDS: Mometasone/Formoterol 120 PUFF INHALER INH SCH ×2 (06:32→18:51)
[2018-08-08] MEDS: Aspirin Chewable 81 MG TAB PO SCH (09:04)
[2018-08-08] MEDS: Amiodarone 200 MG TAB PO SCH (09:04)
[2018-08-08] MEDS: Metolazone 5 MG TAB PO SCH (09:05)
--- NOTE | 2018-08-08 09:43 | PRG ---
DATE OF SERVICE: 08/08/2018 SUBJECTIVE: Guilherme Hernadez is a 57-year-old gentleman, status post dialysis yesterday, still weak, still short of breath. OBJECTIVE: VITAL SIGNS: Sats 90% on room air, respiratory rate 18, temperature 98, pulse 61, blood pressure 100/67. CHEST: Decreased breath sounds. No wheezing. CARDIAC: Normal S1, S2. No gallops. ABDOMEN: Soft. No masses. IMPRESSION: 1. Respiratory failure. 2. Congestive heart failure. 3. Chronic obstructive pulmonary disease. 4. End-stage renal disease. PLAN: Taper steroids. Continue neb treatments and supportive care. Job ID: [id number]
[2018-08-08] MEDS: Carvedilol 3.125 MG TAB PO SCH ×2 (09:58→18:19)
--- NOTE | 2018-08-08 12:21 | PRG ---
DATE OF SERVICE: 08/08/2018 SUBJECTIVE: This is a 57-year-old gentleman, being seen for end-stage renal disease. The patient denied nausea, vomiting, or chest pain. OBJECTIVE: CONSTITUTIONAL: The patient is awake and alert. VITAL SIGNS: Afebrile. Pulse 69, breathing 16, blood pressure 111/65. GENERAL APPEARANCE AND MENTAL STATUS: Fair. HEAD/NECK: Normocephalic. Atraumatic. EYES: EOMI. No deformity. EARS: Clear. No ulcers. NOSE: Intact. No lesions. MOUTH: Clear. No discharge. THROAT: Clear. No exudate. LUNGS: Clear. No crackles. CARDIAC: S1, S2. No rub. ABDOMEN: Benign. Bowel sounds positive. GENITALIA/RECTUM: José absent. BACK/EXTREMITIES: Edema 0+. NEUROLOGICAL: Alert and motor intact. SKIN: LYMPHATICS: LABORATORY DATA: Reviewed. ASSESSMENT AND PLAN: 1. Stage 6 chronic kidney disease, plan dialysis today. 2. Hypertension, stable. 3. Anemia, stable. 4. Congestive heart failure, plan dialysis. Continue diuretics. Job ID: [id number]
[2018-08-08 16:47] LABS: Hemoglobin 11.1 g/dL (14.0-18.0); Platelet Count 55 thou/uL (130-400)
--- NOTE | 2018-08-08 17:00 | PDOC.PN ---
- Subjective Encounter Start Date: 08/08/18 Encounter Start Time: 07:00 Pt seen for followup re: CVA. Says he feels okay. - Objective Resuscitation Status - Order Detail: 08/01/18 20:34 Resuscitation Status Routine Resuscitation Status: FULL: Full Resuscitation Discussed with: POA: daughter Ms.Rachel Leal Vital Signs & Weight: Vital Signs (12 hours) Temp Pulse Pulse Pulse Resp BP BP 08/08/18 15:51 98.0 F 99 18 08/08/18 12:41 65 16 08/08/18 11:20 98.0 F 69 18 08/08/18 09:33 74 74 116/71 119/81 08/08/18 09:04 77 107/73 08/08/18 07:50 98.1 F 61 18 08/08/18 06:38 08/08/18 06:37 64 16 08/08/18 06:32 64 16 BP Pulse Ox 08/08/18 15:51 106/78 94 L 08/08/18 12:41 98 08/08/18 11:20 111/75 96 08/08/18 09:33 08/08/18 09:04 08/08/18 07:50 100/67 93 L 08/08/18 06:38 95 08/08/18 06:37 95 08/08/18 06:32 95 Weight Admit Weight 260 lb 11.2 oz Weight 229 lb 1.6 oz I&O: 08/07/18 08/08/18 08/09/18 06:59 06:59 06:59 Intake Total 1676 498.9 Output Total 4090 850 Balance -1034 -351.1 Result Diagrams: 08/08/18 16:30 08/07/18 00:53 Additional Labs: Accuchecks 08/08/18 08/08/18 08/08/18 16:39 10:26 05:49 POC Glucose 129 H 136 H 94 08/07/18 20:26 POC Glucose 115 H Phys Exam - Physical Examination Obese HEENT: moist MMs Neck: supple Respiratory: clear to auscultation bilateral Cardiovascular: RRR Gastrointestinal: soft Neurological: moves all 4 limbs R weakness Psychiatric: normal affect Dx/Plan (1) Acute CVA (cerebrovascular accident) Code(s): I63.9 - CEREBRAL INFARCTION, UNSPECIFIED Status: Acute Comment: with right hemiparesis (2) Acute on chronic combined systolic and diastolic congestive heart failure Code(s): I50.43 - ACUTE ON CHRONIC COMBINED SYSTOLIC AND DIASTOLIC HRT FAIL Status: Acute Comment: NYHA Class 3, ef of 15%. Pt started on dialysis, also has furosemide. (3) ESRD needing dialysis Code(s): N18.6 - END STAGE RENAL DISEASE; Z99.2 - DEPENDENCE ON RENAL DIALYSIS Status: Acute Comment: started on dialysis after catheter placement. On dobutamine to maintain blood pressure. (4) Acute metabolic encephalopathy Code(s): G93.41 - METABOLIC ENCEPHALOPATHY Status: Acute Comment: Improved - Plan * . Review of Systems - Review of Systems Cardiovascular: negative: chest pain, palpitations, orthopnea, paroxysmal nocturnal dyspnea, edema, light headedness Gastrointestinal: negative: Nausea, Vomiting, Abdominal Pain, Diarrhea, Constipation, Melena, Hematochezia Neurological: Weakness - Medications/Allergies Allergies/Adverse Reactions: Allergies Allergy/AdvReac Type Severity Reaction Status Date / Time No Known Drug Allergies Allergy Verified 08/01/18 23:08 Medications: Current Medications Acetaminophen (Tylenol) 650 mg PO Q4H PRN PRN Reason: Headache/Fever/Mild Pain (1-3) Last Admin: 08/06/18 20:24 Dose: 650 mg Albuterol/Ipratropium (Duoneb) 3 ml NEB [id number] [facility] Last Admin: 08/08/18 12:41 Dose: 3 ml Alprazolam (Xanax) 0.25 mg PO TIDPRN PRN PRN Reason: Anxiety Last Admin: 08/07/18 23:52 Dose: 0.25 mg Amiodarone HCl (Cordarone) 200 mg PO DAILY [facility] Last Admin: 08/08/18 09:04 Dose: 200 mg Aspirin (Aspirin Chewable) 81 mg PO DAILY [facility] Last Admin: 08/08/18 09:04 Dose: 81 mg Atorvastatin Calcium (Lipitor) 20 mg PO HS [facility] Last Admin: 08/07/18 20:20 Dose: 20 mg Bisacodyl (Dulcolax) 10 mg [place] DAILYPRN PRN PRN Reason: Constipation Carvedilol (Coreg) 3.125 mg PO BID-WM [facility] Last Admin: 08/08/18 09:58 Dose: 3.125 mg Dextrose/Water (Dextrose 50%) 25 gm SLOW IVP PRN PRN PRN Reason: Hypoglycemia Furosemide (Lasix) 80 mg SLOW IVP 0600,1400 [facility] Last Admin: 08/07/18 15:05 Dose: Not Given Glucagon (Glucagon) 1 mg IM PRN PRN PRN Reason: Hypoglycemia Guaifenesin/Dextromethorphan (Robitussin Dm) 15 ml PO Q4H PRN PRN Reason: Cough Hydralazine HCl (Apresoline) 10 mg PO TID [facility] Dextrose/Water (D5w) 1,000 mls @ 0 mls/hr IV .Q0M PRN PRN Reason: Hypoglycemia Insulin Human Lispro (Humalog) 0 units SC .BEDTIME SLIDING SC PRN PRN Reason: Bedtime Correctional Scale Last Admin: 08/02/18 21:38 Dose: 3 unit Insulin Human Lispro (Humalog) 0 units SC .MILD SLIDING SCALE PRN PRN Reason: Mild Correctional Scale Last Admin: 08/06/18 18:35 Dose: 3 unit Melatonin (Melatonin) 3 mg PO HS PRN PRN Reason: Insomnia Last Admin: 08/03/18 21:39 Dose: 3 mg Metolazone (Zaroxolyn) 5 mg PO 0830 [facility] Last Admin: 08/08/18 09:05 Dose: 5 mg Mometasone Furoate/Formoterol Fumar (Dulera 200 Mcg/5 Mcg Inhaler) 2 puff INH BID-RT [facility] Last Admin: 08/08/18 06:32 Dose: 2 puff Ondansetron HCl (Zofran) 4 mg SLOW IVP Q6H PRN PRN Reason: Nausea Last Admin: 08/07/18 14:36 Dose: 4 mg Ondansetron HCl (Zofran Odt) 4 mg PO Q6H PRN PRN Reason: Nausea Last Admin: 08/03/18 13:01 Dose: 4 mg Senna/Docusate Sodium (Senokot S) 2 tab PO BID PRN PRN Reason: Constipation Sodium Chloride (Flush - Normal Saline) 10 ml IVF PRN PRN PRN Reason: Saline Flush
[2018-08-08] MEDS: Furosemide 100 MG/10 ML VIAL SLOW IVP SCH ×2 (17:42→22:12)
[2018-08-08] MEDS: hydrALAZINE 10 MG TAB PO SCH ×2 (18:18→21:06)
[2018-08-08] MEDS: Atorvastatin Calcium 20 MG TAB PO SCH (21:06)
[2018-08-09] MEDS ORDERED: Carvedilol 3.125 MG TAB PO SCH (05:15)
[2018-08-09] MEDS: Mometasone/Formoterol 120 PUFF INHALER INH SCH ×2 (06:54→18:52)
[2018-08-09] MEDS: Amiodarone 200 MG TAB PO SCH (08:38)
[2018-08-09] MEDS: Aspirin Chewable 81 MG TAB PO SCH (08:38)
[2018-08-09] MEDS: hydrALAZINE 10 MG TAB PO SCH ×3 (08:38→21:51)
[2018-08-09] MEDS: Metolazone 5 MG TAB PO SCH (08:38)
[2018-08-09 10:00] LABS: INR-International Normal Ratio 1.8; Prothrombin Time 21.2 SEC (12.0-14.7)
[2018-08-09] MEDS ORDERED: Heparin 10,000 UNITS/ 10 ML VIAL ONE (10:00)
[2018-08-09] MEDS: Carvedilol 3.125 MG TAB PO SCH ×2 (10:14→16:42)
--- NOTE | 2018-08-09 11:16 | PRG ---
DATE OF SERVICE: 08/09/2018 SUBJECTIVE: This is a 57-year-old gentleman, being seen for end-stage renal disease. The patient denies any nausea, vomiting, or chest pain. OBJECTIVE: CONSTITUTIONAL: The patient is awake and alert. VITAL SIGNS: Afebrile, pulse 75, breathing 16, and blood pressure was 101/72. GENERAL APPEARANCE AND MENTAL STATUS: Fair. HEAD/NECK: Normocephalic. Atraumatic. EYES: EOMI. No deformity. EARS: Clear. No ulcers. NOSE: Intact. No lesions. MOUTH: Clear. No discharge. THROAT: Clear. No exudate. LUNGS: Clear. No crackles. CARDIAC: S1, S2. No rub. ABDOMEN: Benign. Bowel sounds positive. GENITALIA/RECTUM: José absent. BACK/EXTREMITIES: Edema 0+. NEUROLOGICAL: Alert and motor intact. SKIN: LYMPHATICS: LABORATORY DATA: Reviewed. ASSESSMENT AND PLAN: 1. Stage 6 chronic kidney disease, stable. 2. Hypertensive, stable. 3. Anemia, stable. 4. Medication based on GFR, appropriate. Job ID: [id number]
[2018-08-09] MEDS: HumaLOG 300 UNITS/3 ML VIAL SC PRN (12:55)
[2018-08-09] MEDS: Furosemide 100 MG/10 ML VIAL SLOW IVP SCH (13:58)
--- NOTE | 2018-08-09 15:43 | PDOC.PN ---
- Subjective Encounter Start Date: 08/09/18 Encounter Start Time: 07:20 Pt seen for followup re: acute ischemic CVA. Denies chest pain or shortness of breath. - Objective Resuscitation Status - Order Detail: 08/01/18 20:34 Resuscitation Status Routine Resuscitation Status: FULL: Full Resuscitation Discussed with: POA: daughter Ms.Rachel Mel [place]OVER Reviewed: Yes Vital Signs & Weight: Vital Signs (12 hours) Temp Pulse Pulse Pulse Resp BP BP 08/09/18 14:25 99 105/68 08/09/18 12:08 95 87 117/79 08/09/18 11:48 97.6 F 99 17 08/09/18 08:38 69 101/72 08/09/18 07:56 98.1 F 69 16 08/09/18 06:59 68 18 08/09/18 06:54 66 18 08/09/18 03:58 97.5 F L 74 18 BP BP Pulse Ox 08/09/18 14:25 08/09/18 12:08 105/68 08/09/18 11:48 103/78 97 08/09/18 08:38 08/09/18 07:56 101/72 99 08/09/18 06:59 94 L 08/09/18 06:54 94 L 08/09/18 03:58 103/69 98 Weight Admit Weight 260 lb 11.2 oz Weight 227 lb 11.2 oz I&O: 08/08/18 08/09/18 08/10/18 06:59 06:59 06:59 Intake Total 498.9 1490 Output Total 850 200 Balance -351.1 1290 Result Diagrams: 08/08/18 16:30 08/07/18 00:53 Additional Labs: Accuchecks 08/09/18 08/09/18 08/08/18 10:53 05:38 19:53 POC Glucose 180 H 116 H 111 H 08/08/18 16:39 POC Glucose 129 H EKG Reviewed by me: Yes (Tele; NSR) Phys Exam - Physical Examination Obese HEENT: moist MMs Neck: supple Respiratory: clear to auscultation bilateral Cardiovascular: RRR Gastrointestinal: soft Neurological: moves all 4 limbs Psychiatric: normal affect Dx/Plan (1) Acute CVA (cerebrovascular accident) Code(s): I63.9 - CEREBRAL INFARCTION, UNSPECIFIED Status: Acute Comment: continue aspirin and Lipitor. (2) Acute on chronic combined systolic and diastolic congestive heart failure Code(s): I50.43 - ACUTE ON CHRONIC COMBINED SYSTOLIC AND DIASTOLIC HRT FAIL Status: Acute Comment: continue furosemide. (3) ESRD needing dialysis Code(s): N18.6 - END STAGE RENAL DISEASE; Z99.2 - DEPENDENCE ON RENAL DIALYSIS Status: Acute Comment: started on dialysis during this admission (4) Acute metabolic encephalopathy Code(s): G93.41 - METABOLIC ENCEPHALOPATHY Status: Acute Comment: Improved - Plan * . Review of Systems - Review of Systems Cardiovascular: negative: chest pain, palpitations, orthopnea, paroxysmal nocturnal dyspnea, edema, light headedness Gastrointestinal: negative: Nausea, Vomiting, Abdominal Pain, Diarrhea, Constipation, Melena, Hematochezia - Medications/Allergies Allergies/Adverse Reactions: Allergies Allergy/AdvReac Type Severity Reaction Status Date / Time No Known Drug Allergies Allergy Verified 08/01/18 23:08 Medications: Current Medications Acetaminophen (Tylenol) 650 mg PO Q4H PRN PRN Reason: Headache/Fever/Mild Pain (1-3) Last Admin: 08/06/18 20:24 Dose: 650 mg Albuterol/Ipratropium (Duoneb) 3 ml NEB [id number] [facility] 234 BEDS AT [facility] Last Admin: 08/09/18 13:28 Dose: Not Given Alprazolam (Xanax) 0.25 mg PO TIDPRN PRN PRN Reason: Anxiety Last Admin: 08/07/18 23:52 Dose: 0.25 mg Amiodarone HCl (Cordarone) 200 mg PO DAILY [facility] 234 BEDS AT [facility] Last Admin: 08/09/18 08:38 Dose: 200 mg Aspirin (Aspirin Chewable) 81 mg PO DAILY [facility] 234 BEDS AT [facility] Last Admin: 08/09/18 08:38 Dose: 81 mg Atorvastatin Calcium (Lipitor) 20 mg PO HS [facility] 234 BEDS AT [facility] Last Admin: 08/08/18 21:06 Dose: Not Given Bisacodyl (Dulcolax) 10 mg [place] DAILYPRN PRN PRN Reason: Constipation Carvedilol (Coreg) 3.125 mg PO BID-WM [facility]S [facility]CLUDE 234 BEDS AT [facility] Last Admin: 08/09/18 10:14 Dose: Not Given Dextrose/Water (Dextrose 50%) 25 gm SLOW IVP PRN PRN PRN Reason: Hypoglycemia Furosemide (Lasix) 80 mg SLOW IVP 0600,1400 [facility] 234 BEDS AT [facility] Last Admin: 08/09/18 13:58 Dose: Not Given Glucagon (Glucagon) 1 mg IM PRN PRN PRN Reason: Hypoglycemia Guaifenesin/Dextromethorphan (Robitussin Dm) 15 ml PO Q4H PRN PRN Reason: Cough Hydralazine HCl (Apresoline) 10 mg PO TID [facility] 234 BEDS AT [facility] Last Admin: 08/09/18 14:25 Dose: Not Given Dextrose/Water (D5w) 1,000 mls @ 0 mls/hr IV .Q0M PRN PRN Reason: Hypoglycemia Insulin Human Lispro (Humalog) 0 units SC .BEDTIME SLIDING SC PRN PRN Reason: Bedtime Correctional Scale Last Admin: 08/02/18 21:38 Dose: 3 unit Insulin Human Lispro (Humalog) 0 units SC .MILD SLIDING SCALE PRN PRN Reason: Mild Correctional Scale Last Admin: 08/09/18 12:55 Dose: 2 unit Melatonin (Melatonin) 3 mg PO HS PRN PRN Reason: Insomnia Last Admin: 08/03/18 21:39 Dose: 3 mg Metolazone (Zaroxolyn) 5 mg PO 0830 [facility] 234 BEDS AT [facility] Last Admin: 08/09/18 08:38 Dose: 5 mg Mometasone Furoate/Formoterol Fumar (Dulera 200 Mcg/5 Mcg Inhaler) 2 puff INH BID-RT [facility]CLUDE 234 BEDS AT [facility] Last Admin: 08/09/18 06:54 Dose: 2 puff Ondansetron HCl (Zofran) 4 mg SLOW IVP Q6H PRN PRN Reason: Nausea Last Admin: 08/07/18 14:36 Dose: 4 mg Ondansetron HCl (Zofran Odt) 4 mg PO Q6H PRN PRN Reason: Nausea Last Admin: 08/03/18 13:01 Dose: 4 mg Senna/Docusate Sodium (Senokot S) 2 tab PO BID PRN PRN Reason: Constipation Sodium Chloride (Flush - Normal Saline) 10 ml IVF PRN PRN PRN Reason: Saline Flush
--- NOTE | 2018-08-09 16:08 | PDOC.CTH ---
Cardiology Progress Note - Subjective The pt seen and examined. No overnight events. No cardiac complaints. This AM , the pt was mildly lethargic, but able to answer questions. - Objective Vital Signs Temp Pulse Pulse Pulse Resp BP BP 08/09/18 14:25 99 105/68 08/09/18 12:08 95 87 117/79 08/09/18 11:48 97.6 F 99 17 08/09/18 08:38 69 101/72 08/09/18 07:56 98.1 F 69 16 08/09/18 06:59 68 18 08/09/18 06:54 66 18 BP BP Pulse Ox 08/09/18 14:25 08/09/18 12:08 105/68 08/09/18 11:48 103/78 97 08/09/18 08:38 08/09/18 07:56 101/72 99 08/09/18 06:59 94 L 08/09/18 06:54 94 L Admit Weight 260 lb 11.2 oz Weight 227 lb 11.2 oz 08/08/18 08/09/18 08/10/18 06:59 06:59 06:59 Intake Total 498.9 1490 Output Total 850 200 Balance -351.1 1290 - Physical Examination General/Neuro: alert & oriented x3 Neck: no JVD present Lungs: CTA Heart: RRR Abdomen: soft Extremities: other: (2+ pitting BLE edema) - Telemetry Telemetry Rhythm: SR ST 100 - Labs Result Diagrams: 08/08/18 16:30 08/07/18 00:53 Troponin/CKMB CK-MB (CK-2) 5.2 ng/mL (0-6.6) 08/01/18 14:52 Troponin I 0.128 ng/mL (< 0.028) H 08/01/18 14:52 - Assessment/Plan 1. Acute on chronic combined HF with EF 10-15% and grade III dd - stable with Lasix 40mg IV BID, Metolazone, and Coreg 3.125mg BID; Not on RICKEY/ARB due to hx of CKD 2. CVA - 3. Parox Afib - remains in SR; on amiodarone 200mg BID, coreg 3.125mg BID, and ASA 81mg qd due to high risk of fall (s/p CVA) 4. HTN - may hold Hydralazine if hypotensive 5. CKD stage 6 - plan for starting HD during this admission? 6. Hx of AICD placement - 7. DM type 2 - 8. HLD - on Lipitor 20mg qd 9. Severe TR/MR - MAR reviewed * Echo on 08/02/2018 with EF 10-15%, grade III dd, markedly ERA, severe dilated LA, mod AR, severe TR, and severe MR. Review of Systems - Review of Systems Constitutional: reports: no symptoms reported EENTM: reports: no symptoms reported Respiratory: reports: no symptoms reported Cardiac (ROS): reports: no symptoms reported ABD/GI: reports: no symptoms reported : reports: no symptoms reported
[2018-08-09 17:58] LABS: Magnesium 1.5 mg/dL (1.6-2.6); Potassium 4.1 mmol/L (3.5-5.1)
--- NOTE | 2018-08-09 18:52 | PRG ---
DATE OF SERVICE: 08/09/2018 SUBJECTIVE: Guilherme Hernadez is examined while receiving dialysis. He was actually asleep when I attended at the bedside and easily awakened. He is not sleepy at all. His only complaint was having back aches sitting in the dialysis chair. OBJECTIVE: VITAL SIGNS: He is afebrile, heart rate 65, respiratory rate 16, and blood pressure 94/66. He is in no distress. Oximetry is 97% on room air earlier today. LUNGS: Clear. HEART: Regular rhythm. ABDOMEN: Soft and nontender. EXTREMITIES: Without asymmetry. He does have stasis changes in both lower extremities. LABORATORY DATA: Only lab today was a potassium of 4.1, magnesium of 1.5. IMPRESSION: 1. Respiratory failure. 2. Chronic obstructive pulmonary disease. 3. Congestive heart failure. 4. End-stage renal disease. He appears to be stable at this time. Medications have been reviewed. We will continue to follow the other physicians caring for him. Job ID: [id number]
[2018-08-09] MEDS: Atorvastatin Calcium 20 MG TAB PO SCH (20:05)
[2018-08-09] MEDS ORDERED: Chloraseptic Spray 180 ml Bottle PO PRN (20:20)
[2018-08-10] MEDS: Furosemide 100 MG/10 ML VIAL SLOW IVP SCH (06:13)
[2018-08-10] MEDS: Mometasone/Formoterol 120 PUFF INHALER INH SCH ×2 (06:26→18:30)
[2018-08-10] MEDS ORDERED: Metolazone 5 MG TAB PO SCH (08:30)
[2018-08-10] MEDS ORDERED: Carvedilol 3.125 MG TAB PO SCH ×2 (10:00→17:00)
[2018-08-10] MEDS ORDERED: Amiodarone 200 MG TAB PO SCH (10:00)
--- NOTE | 2018-08-10 10:03 | PDOC.CTH ---
Cardiology Progress Note - Subjective The pt seen and examined. No overnight events. No cardiac complaints. He has walked around the hospital without SOB or other cardiac complaints. - Objective Vital Signs Temp Pulse Resp BP Pulse Ox 08/10/18 07:42 97.7 F 71 18 103/73 97 08/10/18 06:32 65 18 94 L 08/10/18 06:26 68 18 94 L 08/10/18 04:00 98.7 F 66 16 106/73 97 Admit Weight 260 lb 11.2 oz Weight 226 lb 12.8 oz 08/09/18 08/10/18 08/11/18 06:59 06:59 06:59 Intake Total 1490 1080 Output Total 200 2200 Balance 1290 -1120 - Physical Examination General/Neuro: alert & oriented x3 Neck: no JVD present Lungs: other: (diminished at bases) Heart: RRR Abdomen: soft Extremities: other: (2+ pitting BLE edema) - Telemetry Telemetry Rhythm: SR - Labs Result Diagrams: 08/08/18 16:30 08/09/18 17:05 Troponin/CKMB CK-MB (CK-2) 5.2 ng/mL (0-6.6) 08/01/18 14:52 Troponin I 0.128 ng/mL (< 0.028) H 08/01/18 14:52 - Assessment/Plan 1. Acute on chronic combined HF with EF 10-15% and grade III dd - Per RN, the pt has not received Lasix, Coreg, Hydralazine, or Metolazone since 08/07/2018 due to hypotensieve. After discussed with Dr Rider, Lasix 40mg was changed to PO qd, Coreg 3.125mg 1/2 tab BID, d/pablito Metolazone and Hydralazine; Not on RICKEY/ ARB due to hx of CKD 2. CVA - stable 3. Parox Afib - remains in SR; on amiodarone which was decreased from 200mg to 100mg qd due to hypotension; On coreg 3.125mg which was decreased from 1 tab to 1/2 tab BID. On ASA 81mg qd due to high risk of fall (s/p CVA) 4. HTN - hypotensive; several medication was adjusted today 5. CKD stage 6 - waiting for outpt HD setting 6. 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 DM type 2 - 8. HLD - on Lipitor 20mg qd 9. Severe TR/MR - need further eval as outpt 10. BLE edema - strongly recommend to wear TEDs MAR reviewed * Echo on 08/02/2018 with EF 10-15%, grade III dd, markedly ERA, severe dilated LA, mod AR, severe TR, and severe MR. * The pt may d/c home tomorrow after setting up outpt HD. * The pt has f/u with [facility] in [place]. pt. seen and eval. by me. I agree with the A/P by the [facility] TE[facility]. Difficult situatoin with a vey poor prognosis. difficult to dialyze pt with severe decr. in EF.continue supportive care. Review of Systems - Review of Systems Constitutional: reports: no symptoms reported EENTM: reports: no symptoms reported Respiratory: reports: no symptoms reported Cardiac (ROS): reports: no symptoms reported ABD/GI: reports: no symptoms reported : reports: no symptoms reported
[2018-08-10] MEDS: Acetaminophen 325 MG TAB PO PRN (10:06)
[2018-08-10] MEDS: Aspirin Chewable 81 MG TAB PO SCH (10:14)
[2018-08-10] MEDS: Amiodarone 200 MG TAB PO SCH (10:24)
[2018-08-10] MEDS: Carvedilol 3.125 MG TAB PO SCH ×2 (10:25→16:34)
[2018-08-10] MEDS: hydrALAZINE 10 MG TAB PO SCH (10:25)
--- NOTE | 2018-08-10 10:30 | PRG ---
DATE OF SERVICE: 08/10/2018 SUBJECTIVE: A 57-year-old gentleman being seen for end-stage renal disease. The patient denied any nausea, vomiting, or chest pain. OBJECTIVE: See above. Awake, alert, in no acute distress. VITAL SIGNS: Afebrile, pulse 71, breathing 16, blood pressure . GENERAL APPEARANCE AND MENTAL STATUS: Fair. HEAD/NECK: Normocephalic. Atraumatic. EYES: EOMI. No deformity. EARS: Clear. No ulcers. NOSE: Intact. No lesions. MOUTH: Clear. No discharge. THROAT: Clear. No exudate. LUNGS: Clear. No crackles. CARDIAC: S1, S2. No rub. ABDOMEN: Benign. Bowel sounds positive. GENITALIA/RECTUM: José absent. BACK/EXTREMITIES: Edema 0+. NEUROLOGICAL: Alert and motor intact. SKIN: LYMPHATICS: LABORATORY DATA: Showed hemoglobin 11.1. ASSESSMENT AND PLAN: 1. Stage 6 chronic kidney disease, plan dialysis tomorrow. 2. Hypertension, stable. 3. Anemia, stable. 4. Hypomagnesemia. Recommend 1 g of magnesium sulfate IV. Job ID: [id number]
[2018-08-10 10:37] LABS: INR-International Normal Ratio 1.8; Prothrombin Time 21.3 SEC (12.0-14.7)
[2018-08-10] MEDS: HumaLOG 300 UNITS/3 ML VIAL SC PRN (11:15)
[2018-08-10] MEDS ORDERED: Furosemide 40 MG TAB PO SCH (14:00)
--- NOTE | 2018-08-10 15:42 | PDOC.PN ---
- Subjective Encounter Start Date: 08/10/18 Encounter Start Time: 07:20 Pt was seen for followup re: ischemic CVA. Says he feels better. - Objective Resuscitation Status - Order Detail: 08/01/18 20:34 Resuscitation Status Routine Resuscitation Status: FULL: Full Resuscitation Discussed with: POA: daughter Ms.Rachel Mel GLOVER Reviewed: Yes Vital Signs & Weight: Vital Signs (12 hours) Temp Pulse Resp BP BP Pulse Ox 08/10/18 15:36 97.7 F 67 16 101/65 100 08/10/18 14:23 68 18 95 08/10/18 11:45 98.2 F 75 18 92/60 97 08/10/18 10:25 72 08/10/18 10:16 71 L 08/10/18 10:15 72 90/63 08/10/18 07:42 97.7 F 71 18 103/73 97 08/10/18 06:32 65 18 94 L 08/10/18 06:26 68 18 94 L 08/10/18 04:00 98.7 F 66 16 106/73 97 Weight Admit Weight 260 lb 11.2 oz Weight 226 lb 12.8 oz I&O: 08/09/18 08/10/18 08/11/18 06:59 06:59 06:59 Intake Total 1490 1080 Output Total 200 2200 Balance 1290 -1120 Result Diagrams: 08/08/18 16:30 08/09/18 17:05 Additional Labs: Accuchecks 08/10/18 08/10/18 08/09/18 10:36 05:20 20:06 POC Glucose 154 H 129 H 134 H 08/09/18 16:40 POC Glucose 84 EKG Reviewed by me: Yes (Tele: NSR) Phys Exam - Physical Examination Constitutional: NAD HEENT: moist MMs Neck: supple Respiratory: clear to auscultation bilateral Cardiovascular: RRR Gastrointestinal: soft Neurological: moves all 4 limbs Lymphatic: no nodes Skin: normal turgor Dx/Plan (1) Acute CVA (cerebrovascular accident) Code(s): I63.9 - CEREBRAL INFARCTION, UNSPECIFIED Status: Acute Comment: pt is on aspirin and Lipitor, will continue (2) Acute on chronic combined systolic and diastolic congestive heart failure Code(s): I50.43 - ACUTE ON CHRONIC COMBINED SYSTOLIC AND DIASTOLIC HRT FAIL Status: Acute Comment: furosemide changed to oral (3) ESRD needing dialysis Code(s): N18.6 - END STAGE RENAL DISEASE; Z99.2 - DEPENDENCE ON RENAL DIALYSIS Status: Acute Comment: started on dialysis during this admission (4) Acute metabolic encephalopathy Code(s): G93.41 - METABOLIC ENCEPHALOPATHY Status: Acute Comment: Improved - Plan * . Likely home tomorrow after arrangements for outpt HD Review of Systems - Review of Systems Gastrointestinal: negative: Nausea, Vomiting, Abdominal Pain, Diarrhea, Constipation, Melena, Hematochezia Genitourinary: negative: Dysuria, Frequency, Incontinence, Hematuria, Retention - Medications/Allergies Allergies/Adverse Reactions: Allergies Allergy/AdvReac Type Severity Reaction Status Date / Time No Known Drug Allergies Allergy Verified 08/01/18 23:08 Medications: Current Medications Acetaminophen (Tylenol) 650 mg PO Q4H PRN PRN Reason: Headache/Fever/Mild Pain (1-3) Last Admin: 08/10/18 10:06 Dose: 650 mg Albuterol/Ipratropium (Duoneb) 3 ml NEB [id number] [facility] Last Admin: 08/10/18 14:23 Dose: 3 ml Alprazolam (Xanax) 0.25 mg PO TIDPRN PRN PRN Reason: Anxiety Last Admin: 08/07/18 23:52 Dose: 0.25 mg Amiodarone HCl (Cordarone) 100 mg PO DAILY [facility] Aspirin (Aspirin Chewable) 81 mg PO DAILY [facility] Last Admin: 08/10/18 10:14 Dose: 81 mg Atorvastatin Calcium (Lipitor) 20 mg PO HS [facility] Last Admin: 08/09/18 20:05 Dose: 20 mg Bisacodyl (Dulcolax) 10 mg [place] DAILYPRN PRN PRN Reason: Constipation Carvedilol (Coreg) 1.5625 mg PO BID-WM [facility] Dextrose/Water (Dextrose 50%) 25 gm SLOW IVP PRN PRN PRN Reason: Hypoglycemia Furosemide (Lasix) 40 mg PO DAILY-AC [facility] Glucagon (Glucagon) 1 mg IM PRN PRN PRN Reason: Hypoglycemia Guaifenesin/Dextromethorphan (Robitussin Dm) 15 ml PO Q4H PRN PRN Reason: Cough Dextrose/Water (D5w) 1,000 mls @ 0 mls/hr IV .Q0M PRN PRN Reason: Hypoglycemia Insulin Human Lispro (Humalog) 0 units SC .BEDTIME SLIDING SC PRN PRN Reason: Bedtime Correctional Scale Last Admin: 08/02/18 21:38 Dose: 3 unit Insulin Human Lispro (Humalog) 0 units SC .MILD SLIDING SCALE PRN PRN Reason: Mild Correctional Scale Last Admin: 08/10/18 11:15 Dose: 2 unit Melatonin (Melatonin) 3 mg PO HS PRN PRN Reason: Insomnia Last Admin: 08/03/18 21:39 Dose: 3 mg Mometasone Furoate/Formoterol Fumar (Dulera 200 Mcg/5 Mcg Inhaler) 2 puff INH BID-RT [facility] Last Admin: 08/10/18 06:26 Dose: 2 puff Ondansetron HCl (Zofran) 4 mg SLOW IVP Q6H PRN PRN Reason: Nausea Last Admin: 08/07/18 14:36 Dose: 4 mg Ondansetron HCl (Zofran Odt) 4 mg PO Q6H PRN PRN Reason: Nausea Last Admin: 08/03/18 13:01 Dose: 4 mg Phenol (Chloraseptic [place] 180 Ml Bot) 0 ml PO Q4H PRN PRN Reason: Sore Throat Last Admin: 08/10/18 10:16 Dose: 2 spr Senna/Docusate Sodium (Senokot S) 2 tab PO BID PRN PRN Reason: Constipation Sodium Chloride (Flush - Normal Saline) 10 ml IVF PRN PRN PRN Reason: Saline Flush
--- NOTE | 2018-08-10 16:46 | PRG ---
DATE OF SERVICE: 08/10/2018 Guilherme Hernadez has been undergoing dialysis. He feels that he must go home to attend to business. Dialysis has not been arranged yet as an outpatient. He will proceed to dialyze in [place] somewhere. The patient has hemodialysis catheter and a central line. Ultrasound vein mapping has been performed and veins were superior in his left arm, in fact are good quality. He should avoid IV access for blood draws in his left arm. Dialysis access could be arranged in the hospital Saturday, but if he is ready for discharge, this could be done as an outpatient later. If hospital staff could call me once his outpatient dialysis is arranged, we can arrange outpatient long-term dialysis access with a left arm fistula as an outpatient in the future. Job ID: [id number]
--- NOTE | 2018-08-10 18:43 | PRG ---
DATE OF SERVICE: 08/10/2018 Guilherme Hernadez is having no respiratory issues. He is not wheezing. He is afebrile. Heart rate is in the 60s, respiratory rate 16, oximetry is 100% on room air, and blood pressure 105/65. There are no new exam findings. He was dialyzed again today. He still needs long-term access, but wants to go home. We will see him as needed. Job ID: [id number]
[2018-08-10] MEDS: Atorvastatin Calcium 20 MG TAB PO SCH (21:16)
[2018-08-11] MEDS: Acetaminophen 325 MG TAB PO PRN (00:07)
[2018-08-11 07:26] LABS: INR-International Normal Ratio 1.7; Prothrombin Time 20.3 SEC (12.0-14.7)
[2018-08-11] MEDS ORDERED: Furosemide 40 MG TAB PO SCH (07:30)
[2018-08-11] MEDS: Mometasone/Formoterol 120 PUFF INHALER INH SCH ×2 (07:48→18:31)
[2018-08-11] MEDS: Aspirin Chewable 81 MG TAB PO SCH (08:14)
[2018-08-11] MEDS: Carvedilol 3.125 MG TAB PO SCH ×2 (08:15→18:13)
[2018-08-11] MEDS ORDERED: Metolazone 2.5 MG TAB PO SCH (08:30)
[2018-08-11] MEDS ORDERED: Amiodarone 200 MG TAB PO SCH ×4 (09:00→12:45)
[2018-08-11] MEDS ORDERED: Heparin 10,000 UNITS/ 10 ML VIAL ONE (09:00)
[2018-08-11] MEDS: HumaLOG 300 UNITS/3 ML VIAL SC PRN (13:00)
[2018-08-11 13:59] LABS: Mean Corpuscular Hemoglobin 28.7 pg (27.0-31.0); Mean Corpuscular Volume 95.6 fL (78.0-98.0); Mean Platelet Volume 9.6 fL (7.4-10.4); Platelet Count 90 thou/uL (130-400); RBC Distribution Width 20.2 % (11.5-14.5); Red Blood Cell (RBC) Count 3.84 mill/uL (4.70-6.10); White Blood Cell (WBC) Count 10.5 thou/uL (4.8-10.8)
[2018-08-11 14:10] LABS: ALT (SGPT) 34 U/L (8-55); AST (SGOT) 55 U/L (5-34); Albumin 2.9 g/dL (3.5-5.0); Alkaline Phosphatase 215 U/L (40-150); Anion Gap 13 mmol/L (10-20); BUN (Urea Nitrogen) 46 mg/dL (8.4-25.7); Bilirubin, Total 12.1 mg/dL (0.2-1.2); Calc. Creatinine Clearance 50 mL/min (70-130); Calcium 8.7 mg/dL (7.8-10.44); Carbon Dioxide 29 mmol/L (22-29); Chloride 93 mmol/L (98-107); Estimated GFR-MDRD 33; Globulin 3.8 g/dL (2.4-3.5); Glucose 156 mg/dL (70-105); Potassium 3.9 mmol/L (3.5-5.1); Protein, Total 6.7 g/dL (6.0-8.3); Sodium 131 mmol/L (136-145)
[2018-08-11 14:19] LABS: Anisocytosis SLIGHT = 6-15 cells (100X) (0-5/hpf); Band 2 % (5-11); Hypochromia SLIGHT = 6-15 cells (100X) (0-5/hpf); Lymphocytes 11 % (21-51); MDiff Complete? YES; Monocytes 6 % (0-10); Neutrophil 81 % (42-75); Platelet Morphology Comment Appears Decreased; Target Cells SLIGHT = 2-5 cells (100X) (0-1/hpf)
--- NOTE | 2018-08-11 14:35 | ULT ---
Carotid arterial Doppler ultrasound: 08/11/2018 COMPARISON: None HISTORY: Stroke workup, history of chest pain TECHNIQUE: Multiplanar grayscale sonographic imaging of the arterial structures of the neck obtained with color flow and spectral analysis FINDINGS: Normal arterial waveforms and antegrade blood flow noted within the right carotid and verte bral system. The demo event specialist reports the inability to assess the left common carotid artery, the left internal car otid artery distally, the left external carotid artery distally, and the left vertebral artery secondary to bandaging associated with vascular catheters. Peak systolic velocity within the right common carotid artery is 48 cm/s, within the right internal c arotid artery is 46 cm/s and within the right external carotid artery is 36 cm/s. ICA/CCA ratio on the right is 1.0. The proximal/mid left ICA demonstrates a peak systolic velocity of 43 cm/s. IMPRESSION: Unremarkable carotid arterial Doppler ultrasound. However, the left carotid and vertebral system could not be adequately assessed as detailed above.
[2018-08-11 17:51] VITALS: BP 103/69; TEMP 98.7
--- NOTE | 2018-08-11 21:19 | PRG ---
DATE OF SERVICE: 08/11/2018 SUBJECTIVE: Patient was seen and examined at bedside and overnight events noted. Patient denies any shortness of breath or chest pain or palpitation. No history of nausea or vomiting or diarrhea or fever or chills or cramps. OBJECTIVE: GENERAL: This is a well-built male, in no apparent distress. VITAL SIGNS: Temperature 98.7. Heart rate . HEENT: Atraumatic, normocephalic. Oral mucosa is moist NECK: Supple. CARDIOVASCULAR: S1, S2 heard. Rate and rhythm regular. RESPIRATORY: Clear to auscultation. GASTROINTESTINAL: Abdomen is soft. MUSCULOSKELETAL: No tenderness. No edema. DERMATOLOGIC: No skin rash. NEUROLOGIC: Alert and awake and oriented X3. No focal neurologic deficits. Moving all the extremities. PSYCHIATRIC: Mood and affect normal. LABORATORY DATA: Potassium is 3.9, BUN is 46, and creatinine is 2.4. ASSESSMENT AND PLAN: 1. End-stage renal disease. Plan is to continue on dialysis. 2. Cardiorenal syndrome. 3. Hypertension. 4. Anemia. Plan is to continue on dialysis as tolerated. Job ID: [id number]
--- NOTE | 2018-08-12 01:30 | DIS ---
DATE OF ADMISSION: 08/01/2018 DATE OF DISCHARGE: 08/11/2018 PRIMARY CARE PROVIDER: Dr. Lux Goddard. DISCHARGE DIAGNOSES: 1. Ischemic cerebrovascular accident. 2. Acute on chronic combined systolic and diastolic congestive heart failure, [place] Heart Association class III. 3. End-stage renal disease, needing dialysis, dialysis initiated during this hospitalization. 4. Acute metabolic encephalopathy. 5. Abnormal liver function tests. 6. Statin on hold secondary to abnormal liver function tests. 7. Chronic obstructive pulmonary disease exacerbation. 8. Metabolic acidosis. CONDITION OF PATIENT ON THE DAY OF DISCHARGE: Stable. I assessed Mr. Hernadez on the day of discharge. He denies any chest pain or shortness of breath. Vital signs are stable. S1 and S2 are heard, regular. Lungs are clear to auscultation bilaterally. CONSULTATIONS DURING THIS HOSPITALIZATION: 1. Neurology, Osvaldo Williamson MD. 2. Pulmonology, Yonatan Villanueva MD. 3. Cardiology, Umesh Spring MD. 4. Nephrology, Sindy Parker MD. 5. General Surgery, Stephen Bejarano MD. DISCHARGE MEDICATIONS: Statin is on hold because of abnormal liver function test. He was not started on RICKEY inhibitor or ARB, because of renal failure. His discharge medications include: 1. Amiodarone 200 mg daily. 2. Lasix 40 mg daily. 3. Aspirin 81 mg daily. 4. Coreg 1.5625 mg 2 times a day. 5. Warfarin was discontinued because his INR was elevated during this hospitalization in spite of not using warfarin. HOSPITAL COURSE: Mr. Herandez is a pleasant 57-year-old gentleman, who was admitted to [facility] on August 01, 2018, for right-sided hemiparesis, acute kidney injury, metabolic acidosis, CHF exacerbation and COPD exacerbation. Please refer to Dr. Woody's history and physical note dated August 01, 2018, for further details. CT scan of the brain showed multifocal lacunar infarctions, age indeterminate. He was also found to have acute on chronic renal failure. He was also in volume overload/congestive heart failure exacerbation. He was seen by Nephrology, Pulmonary Critical Care Medicine, Neurology and Cardiology Services. On August 04, he underwent right femoral Trialysis catheter for dialysis. This was complicated by bleeding. On August 07, he had right IJC cuffed tunneled dialysis catheter. He received dialysis during this hospitalization and is eventually being transitioned to outpatient dialysis on Saturday, Saturday, and Saturday. General Surgery Service will follow up with him for AV fistula placement. His LFTs were noted to be abnormal. His statin is being discontinued. He is advised to have his liver function tests checked through his primary care provider in 5 to 7 days and to be followed until his statin can be resumed. He was evaluated by Therapy Services. He was advised inpatient rehab. The patient refused inpatient rehab, as well as half-way. He is being discharged home with Home Health. 2D echocardiogram done during this hospitalization showed left ventricular ejection fraction of 10% to 15%, severely dilated left atrium, markedly enlarged right atrium size, moderately increased left ventricular size, impaired relaxation compatible with diastolic dysfunction, severe mitral regurgitation, moderate aortic regurgitation, severe tricuspid regurgitation and dilatation of inferior vena cava. He will need cardiology followup to discuss management of valvular problems. He also had a carotid Doppler study, which was unremarkable. However, the left carotid and vertebral system could not be adequately assessed. On the day of discharge, he has sodium 131, potassium 3.9, blood urea nitrogen 46, creatinine 2.47, total bilirubin 12.1, AST 55, ALT 34, [place] [address], hemoglobin 11, and platelet count 90,000. Many thanks for allowing me to participate in your patient's care. Please feel free to contact me with any questions or concerns. DISCHARGE DESTINATION: Home with Home Health. TIME SPENT: Total amount of time spent coordinating this discharge: 33 minutes. Job ID: [id number]
[2018-08-12] MEDS ORDERED: Amiodarone 200 MG TAB PO SCH (09:00)
== END 2018-08-11 18:57 | disposition home health service (06) | DRG 64 ==
LOC: ERS 14:31 → 2SE 19:15
PROVIDERS: ADMIT Internal Medicine; ATTEND Internal Medicine
PROC: 5A1D70Z Performance of Urinary Filtration, Intermittent, Less than 6 Hours Per Day (ICD-10-PCS; 2018-08-01)
PROC: 02HV33Z Insertion of Infusion Device into Superior Vena Cava, Percutaneous Approach (ICD-10-PCS; principal; 2018-08-04)
PROC: 0JH63XZ Insertion of Tunneled Vascular Access Device into Chest Subcutaneous Tissue and Fascia, Percutaneous Approach (ICD-10-PCS; 2018-08-07)
PROC: 02HV33Z Insertion of Infusion Device into Superior Vena Cava, Percutaneous Approach (ICD-10-PCS; 2018-08-07)
PROC: B548ZZA Ultrasonography of Superior Vena Cava, Guidance (ICD-10-PCS; 2018-08-07)
PROC: B5181ZA Fluoroscopy of Superior Vena Cava using Low Osmolar Contrast, Guidance (ICD-10-PCS; 2018-08-07)
DX: I63.9 Cerebral infarction, unspecified (principal); N18.6 End stage renal disease; I50.43 Acute on chronic combined systolic (congestive) and diastolic (congestive) heart failure; G93.41 Metabolic encephalopathy; J96.90 Respiratory failure, unspecified, unspecified whether with hypoxia or hypercapnia; I13.2 Hypertensive heart and chronic kidney disease with heart failure and with stage 5 chronic kidney disease, or end stage renal disease; G81.91 Hemiplegia, unspecified affecting right dominant side; N17.9 Acute kidney failure, unspecified; J44.1 Chronic obstructive pulmonary disease with (acute) exacerbation; I42.8 Other cardiomyopathies; E87.1 Hypo-osmolality and hyponatremia; I48.0 Paroxysmal atrial fibrillation; E87.5 Hyperkalemia; E10.22 Type 1 diabetes mellitus with diabetic chronic kidney disease; E78.5 Hyperlipidemia, unspecified; E66.9 Obesity, unspecified; E78.00 Pure hypercholesterolemia, unspecified; I25.10 Atherosclerotic heart disease of native coronary artery without angina pectoris; R79.89 Other specified abnormal findings of blood chemistry; I08.3 Combined rheumatic disorders of mitral, aortic and tricuspid valves; E83.42 Hypomagnesemia; I95.9 Hypotension, unspecified; D63.1 Anemia in chronic kidney disease; Z79.4 Long term (current) use of insulin; Z91.81 History of falling; I25.2 Old myocardial infarction; Z95.0 Presence of cardiac pacemaker; Z90.49 Acquired absence of other specified parts of digestive tract; Z87.891 Personal history of nicotine dependence; Z79.01 Long term (current) use of anticoagulants; Z86.718 Personal history of other venous thrombosis and embolism; Z79.899 Other long term (current) drug therapy
CPT/HCPCS: 36415; 36416; 36430; 70450; 71045; 76000; 76770; 80048; 80053; 80061; 80069; 80306; 81001; 82550; 82553; 82570; 83735; 83880; 84132; 84156; 84443; 84484; 85014; 85018; 85025; 85049; 85610; 85730; 86704; 86706; 86803; 86850; 86900; 86901; 87040; 87340; 90935; 93005; 93010; 93306; 93798; 93880; 93970; 94640; 96374; 96375; C1752; C1769; G0257; G0365; J0670; J0690; J1100; J1250; J1642; J1644; J1940; J2001; J2060; J2250; J2405; J2765; J2920; J7512; J7620; P9059; Q0162

== ENCOUNTER 2018-08-26 10:03 | Day surgery (SDC) | payer OTHER ==
[2018-08-25 11:06] VITALS: BMI 31.5
[2018-08-26] MEDS ORDERED: Bupivacaine HCl 0.5%/Epinephrine 1:200,000/PF 30 ml Vial ONE ×2 (11:25→12:43)
[2018-08-26] MEDS ORDERED: Heparin 10,000 UNITS/ 10 ML VIAL ONE (12:09)
[2018-08-26] MEDS ORDERED: Ondansetron PF 4 MG/2 ML Vial ONE (12:09)
[2018-08-26] MEDS ORDERED: Lidocaine 2% PF 5 ML VIAL ONE (12:43)
[2018-08-26] MEDS ORDERED: Ioversol 68 % 50 ML VIAL ONE (12:43)
[2018-08-26] MEDS ORDERED: Heparin 5,000 UNITS/ML VIAL ONE (12:43)
[2018-08-26] MEDS ORDERED: Protamine Sulfate 50 MG/5 ML VIAL ONE (12:43)
[2018-08-26 12:57] LABS: Anion Gap 15 mmol/L (10-20); BUN (Urea Nitrogen) 23 mg/dL (8.4-25.7); Calc. Creatinine Clearance 71 mL/min (70-130); Calcium 8.2 mg/dL (7.8-10.44); Carbon Dioxide 26 mmol/L (22-29); Chloride 101 mmol/L (98-107); Estimated GFR-MDRD 47; Glucose 86 mg/dL (70-105); Potassium 4.5 mmol/L (3.5-5.1); Sodium 137 mmol/L (136-145)
[2018-08-26] MEDS ORDERED: Midazolam HCl 2 mg/2 ml Vial ONE (13:06)
[2018-08-26] MEDS ORDERED: Fentanyl 100 MCG/2 ML VIAL ONE (13:06)
[2018-08-26 13:26] LABS: Anisocytosis SLIGHT = 6-15 cells (100X) (0-5/hpf); Band 4 % (5-11); Eosinophils 1 % (0-10); Hemoglobin 11.1 g/dL (14.0-18.0); Hypochromia SLIGHT = 6-15 cells (100X) (0-5/hpf); Lymphocytes 12 % (21-51); MDiff Complete? YES; Mean Corpuscular HGB CONC 30.4 g/dL (32.0-36.0); Mean Corpuscular Hemoglobin 29.9 pg (27.0-31.0); Mean Corpuscular Volume 98.5 fL (78.0-98.0); Mean Platelet Volume 7.9 fL (7.4-10.4); Monocytes 10 % (0-10); Neutrophil 73 % (42-75); Platelet Count 206 thou/uL (130-400); Platelet Morphology Comment Appears Adequate; White Blood Cell (WBC) Count 6.7 thou/uL (4.8-10.8)
--- NOTE | 2018-08-26 15:06 | OP ---
DATE OF PROCEDURE: 08/26/2018 PREOPERATIVE DIAGNOSES: 1. Defibrillator, left subclavian vein. 2. End-stage renal disease. ANESTHESIA: IV sedation, regional. PROCEDURES PERFORMED: Left arm primary fistula, perforating branch of the antecubital vein to the proximal radial artery of excellent caliber with outflow through primary cephalic vein, but communication in the basilic vein, retrograde antecubital vein preserved, 4 mm coronary artery dilator out the outflow. The patient tolerated the procedure well. DESCRIPTION OF PROCEDURE: The patient was taken to the operating room. Under IV sedation and regional anesthesia, left upper extremity was prepared with ChloraPrep and draped in routine fashion. Vein seemed to be inadequate at the wrist. Incision was made in the proximal volar forearm longitudinally below the antecubital fossa, carried down to skin and subcutaneous tissue, and the perforating branch antecubital vein and proximal radial artery dissected free. The patient given 6000 units of heparin intravenously. Perforating branch antecubital vein dissected free and branches were divided between clips and 4-0 silk ties, spatulated over branch point, interrogated with coronary dilators, passing coronary dilators from a 2 mm to a 4 mm coronary dilator out the cephalic vein outflow of upper arm. No obstruction. Communication in the basilic vein noted. Retrograde antecubital vein preserved. Nerves kept free of harm as proximal radial artery clamped proximally and distally. A longitudinal arteriotomy was made sharply for a 2.5 to 3 cm anastomosis between the side of the proximal radial artery and the end perforating branch antecubital vein with the anastomosis completed with continuous suture of 6-0 Prolene. Hemostasis obtained with 6-0 Prolene and 4-0 silk ties, vascular clamps released and good flow in the cephalic vein outflow and interrogated by Doppler, assured. Good hemostasis ensured and subcutaneous tissue was approximated with 3-0 Monocryl, skin with subdermal 4-0 Monocryl, and [place] glue applied. Job ID: [id number]
== END 2018-08-26 15:28 | disposition home or self-care (01) ==
LOC: SDC 10:03
PROVIDERS: ATTEND Specialist
PROC: 031C0ZF Bypass Left Radial Artery to Lower Arm Vein, Open Approach (ICD-10-PCS; principal; 2018-08-26)
DX: I13.2 Hypertensive heart and chronic kidney disease with heart failure and with stage 5 chronic kidney disease, or end stage renal disease (principal); N18.6 End stage renal disease; I50.9 Heart failure, unspecified; I25.2 Old myocardial infarction; I48.91 Unspecified atrial fibrillation; Z87.891 Personal history of nicotine dependence; Z79.82 Long term (current) use of aspirin; Z79.899 Other long term (current) drug therapy; Z95.810 Presence of automatic (implantable) cardiac defibrillator; Z99.2 Dependence on renal dialysis
CPT/HCPCS: 80048; 85025; J0670; J0690; J1644; J2001; J2250; J2405; J2720; J3010; Q9967